=== PATIENT | male | born 1945 | race Caucasian/White ===

== ENCOUNTER → 2018-11-17 10:49 | Outpatient (CLI) | payer OTHER, MEDICARE ==
[~2018-11-17 10:49] MED LIST: ASCORBIC ACID500 MG PO; CENTRUM MEN'S1 EACH PO; SPIRIVA18 MCG INH; VITAMIN D31000 UNIT PO
[2018-12-01 10:35] VITALS: BMI 22.4
== END | disposition home or self-care (01) ==
LOC: D.RT 10:49
DX: C34.2 Malignant neoplasm of middle lobe, bronchus or lung (principal)

== ENCOUNTER 2018-11-28 05:00 | Inpatient (IN) | payer OTHER, MEDICARE ==
[2018-11-24 14:25] LABS: INR 1.1 (0.85-1.17); PROTIME 13.7 SECONDS (11.6-15.0)
[2018-11-24 14:26] LABS: APTT 32.8 SECONDS (22.8-39.4)
[2018-11-24 14:29] LABS: ALKALINE PHOSPHATASE 92 U/L (46-116); ALT (SGPT) 35 U/L (10-68); BILIRUBIN - TOTAL 0.64 mg/dL (0.2-1.3); CALC OSMOLALITY 267 mosm/kg (275-300); CALCIUM 8.6 mg/dL (8.5-10.1); CARBON DIOXIDE 27.8 mmol/L (21.0-32.0); CHLORIDE - SERUM 98 mmol/L (98-107); GLUCOSE 100 mg/dL (74-106); HEMATOCRIT 41.2 % (42.0-54.0); HEMOGLOBIN 14.2 g/dL (13.5-17.5); MCH 31.3 pg (26.0-34.0); MCHC 34.5 g/dL (31.0-37.0); MCV 90.9 fL (80.0-100.0); MEAN PLATELET VOLUME 8.9 fL (7.4-10.4); POTASSIUM - SERUM 4.1 mmol/L (3.5-5.1); PROTEIN - SERUM 7.4 g/dL (6.4-8.2); RBC 4.53 10x6/uL (4.20-6.10); RDW 11.4 % (11.5-14.5); SODIUM 133 mmol/L (136-145); UREA NITROGEN 18 mg/dL (7-18); eGFR NON AFRICAN AMERICAN 78 mL/min (90-120)
[2018-11-24 14:35] LABS: APPEARANCE HAZY (CLEAR); BILIRUBIN NEGATIVE (NEGATIVE); COLOR DK YELLOW (YELLOW); GLUCOSE NEGATIVE (NEGATIVE); KETONE NEGATIVE (NEGATIVE); NITRITE NEGATIVE (NEGATIVE); PROTEIN NEGATIVE (NEGATIVE); SPECIFIC GRAVITY 1.015 (1.005-1.020); UROBILINOGEN NORMAL (NORMAL)
[~2018-11-28] VITALS: Ht 177.8 cm; Wt 75.0 kg
[2018-11-28] VITALS (49 sets, daily range): BP systolic 96–135; BP diastolic 50–80; BMI 23.5; BMI 22.4
[~2018-11-28 05:00] MED LIST changes: -SPIRIVA18 MCG INH
[2018-11-28] MEDS ORDERED: SPIRIVA18 MCG INH (05:24)
--- NOTE | 2018-11-28 13:42 | NUR ---
1201-REC'D PT FROM OR. ALL CARDIO PULMONARY MONITORING EQUIPMENT ATTACHED AND ALARMS SET FOR ORDERED PARAMETERS. PT AWAKENS EASILY. FOLLOWS COMMAND. CXR DONE AT BS. ANN GTT AT 0.9MCG/KG/MIN. DR FLORES DCD SUCTION FROM CTUBES. EPIDURAL FOR PAIN MGNT. PT DENIES PAIN. ALLOWED TO ENTER FOR VISITING.
--- NOTE | 2018-11-28 19:30 | NUR ---
PT DISORIENTED TO TIME AND SITUATION. PERIODS OF CONFUSION PRESENT. WILL FOLLOW COMMANDS. SHALLOW RESPIRATIONS, LUNG SOUNDS CLEAR/DIMINISHED. SPO2 93 ON 4L O2 VIA NC. I/S COMPLETED REACHING 1000 X10. S1S2 HEARD, PERIPHERAL PULSES PRESENT. BOWEL SOUNDS ACTIVE IN ALL QUADRANTS. OCHOA CATH INTACT WITH DEEPTHI URINE TO BEDSIDE. CT X2 TO RIGHT SIDE, INTACT WITH BLOODY DRAINAGE. EPIDURAL INTACT, PT HAS NO C/O PAIN. PT REPOSITIONED COUGH/DB WITH GOOD EFFORT. VSS. ROOM VISIBLE FROM NURSES STAION, BED ALARM ON. CPOC.
--- NOTE | 2018-11-28 21:00 | NUR ---
PT AWAKE AND ALERT, REMAINS CONFUSED. FOLLOWS COMMANDS. FRESH WATER TO BEDSIDE, TOLERATING WELL WITH NO COMPLAINTS OF NAUSEA. COUGH/DB WITH GOOD EFFORT, I/S COMPLETED REACHING 1000 X10. PT REPOSITIONED WITH PROMINENCES BRIDGED. DENIES FURTHER NEEDS. ROOM VISIBLE FROM NURSES STATION. CPOC.
--- NOTE | 2018-11-28 22:00 | NUR ---
NO VISITORS DURING VISITATION. PT RESTING QUIETLY WITH NO COMPLAINTS AT THIS TIME. VSS, CPOC.
--- NOTE | 2018-11-28 23:30 | NUR ---
REASSESSMENT COMPLETE, NO NEW CHANGES AT THIS TIME. PT COUGH/DB WITH GOOD EFFORT. COMPLETED I/S REACHING 1000 X10. PT REPOSITIONED WITH PROMINENCES BRIDGED. VSS, NO C/O PAIN AT THIS TIME. DENIES NEEDS. CALL LIGHT WITHIN PT REACH, ROOM VISIBLE FROM NURSES STATION. CPOC.
[2018-11-29] VITALS (41 sets, daily range): BP systolic 90–129; BP diastolic 51–82; BMI 22.4
--- NOTE | 2018-11-29 02:00 | NUR ---
PT PULLING AT IV LINES AND TRYING TO GET UP SAYING, "I NEED TO GET TO [place]" PT REORIENTED, NEW CVL DRSG PLACED. REPOSITIONED IN BED, EPIDURAL INTACT. VSS. BED ALARM ON, ROOM VISIBLE FROM NURSES STATION. WILL CONTINUE TO MONITOR.
--- NOTE | 2018-11-29 03:30 | NUR ---
REASSESSMENT COMPLETE, NO NEW CHANGES AT THIS TIME. PT REPOSITIONED WITH PARTIAL LINEN CHANGE, PROMINENCES BRIDGED. COUGH/DB WITH GOOD EFFORT. I/S COMPLETED REACHING 1000 X10. VSS, WILL CONTIUE TO MONITOR.
--- NOTE | 2018-11-29 05:30 | NUR ---
PT REPOSITIONED WITH PROMINENCES BRIDGED. COUGH/DB, I/S COMPLETED REACHING 1000 X10. VSS, REMAINS CONFUSED. ROOM VISIBLE FROM NURSES STATION. CPOC.
[2018-11-29 06:19] LABS: HEMATOCRIT 31.8 % (42.0-54.0); HEMOGLOBIN 10.9 g/dL (13.5-17.5); MCH 31.1 pg (26.0-34.0); MCHC 34.3 g/dL (31.0-37.0); MCV 90.6 fL (80.0-100.0); MEAN PLATELET VOLUME 9.2 fL (7.4-10.4); RBC 3.51 10x6/uL (4.20-6.10); RDW 11.8 % (11.5-14.5); WBC 12.2 10x3/uL (4.8-10.8)
[2018-11-29 06:57] LABS: ALBUMIN 2.2 g/dL (3.4-5.0); ALKALINE PHOSPHATASE 65 U/L (46-116); ALT (SGPT) 32 U/L (10-68); BILIRUBIN - TOTAL 0.83 mg/dL (0.2-1.3); CALC OSMOLALITY 277 mosm/kg (275-300); CALCIUM 7.7 mg/dL (8.5-10.1); CARBON DIOXIDE 22.5 mmol/L (21.0-32.0); CHLORIDE - SERUM 103 mmol/L (98-107); CREATININE - SERUM 0.8 mg/dL (0.6-1.3); SODIUM 137 mmol/L (136-145); UREA NITROGEN 15 mg/dL (7-18); eGFR NON AFRICAN AMERICAN > 90 mL/min (90-120)
[2018-11-29 06:58] LABS: GLUCOSE 148 mg/dL (74-106)
[2018-11-29 06:59] LABS: POTASSIUM - SERUM 4.3 mmol/L (3.5-5.1)
--- NOTE | 2018-11-29 09:45 | NUR ---
PT DANGLING FROM BEDSIDE. VOICES NO CO AT TIME.
--- NOTE | 2018-11-29 10:15 | NUR ---
CONTINUE TO SIT ON SIDE OF BED WITH AT SIDE.
--- NOTE | 2018-11-29 12:00 | NUR ---
EATING LUNCH NO CO AT TIME.
--- NOTE | 2018-11-29 13:29 | MORECARE ---
CASE MANAGEMENT DISCHARGE SUMMARY PATIENT: EYAD THOMPSON UNIT: [id number] ADM DATE: 11/28/18 AGE: 73 : 45 SEX: M [facility] AUTHOR: FRANCIS VICKERS PHYSICIAN: REFERRING PHYSICIAN: PENNY FLORES MD DATE OF SERVICE: 11/29/18 Discharge Plan Patient Name: EYAD THOMPSON Facility: [facility]:[place] : 1945 Planned Disposition: Home Anticipated Discharge Date: Discharge Date: Expected LOS: Initial Reviewer: [email or web address] Initial Review Date: 11/29/2018 Generated: 11/29/18 2:28 pm Patient Name: EYAD THOMPSON Page 38573 at 1329 All edits/amendments must be made on the electronic document DICTATION DATE: 11/29/18 1328 PRECISION HONER: MONSTER 11/29/18 1328 RPT#: [id number] DC DATE: STATUS: ADM IN [facility] [address] [place] [address] END OF REPORT
--- NOTE | 2018-11-29 13:38 | MORECARE ---
CASE MANAGEMENT DISCHARGE SUMMARY PATIENT: EYAD WARD UNIT: [id number] ADM DATE: 11/28/18 AGE: 73 : 45 SEX: M ROOM/BED: D[facility] AUTHOR: FRANCIS VICKERS PHYSICIAN: REFERRING PHYSICIAN: PENNY FLORES MD DATE OF SERVICE: 11/29/18 Discharge Plan Patient Name: EYAD WARD Facility: [facility]:[place] : 1945 Planned Disposition: Home Anticipated Discharge Date: Discharge Date: Expected LOS: Initial Reviewer: [email or web address] Initial Review Date: 11/29/2018 Generated: 11/29/18 2:38 pm DCP- Discharge Planning Updated by [email or web address]: Georgiana Milner on 11/29/18 12:[address] Patient Name: EYAD WARD Admission Status: Urgent Accout number: [id number] Admission Date: 11-28-2018 : 1945 Admission Diagnosis: Attending: PENNY FLORES Current LOS: 1 Anticipated DC Date: Planned Disposition: Home Primary Insurance: [employer] Discharge Planning Comments: CM met with patient and spouse at bedside after obtaining verbal consent. Patient states he plans on returning home after discharge with his . Patient states he will have family transport him home via private vehicle. Patient denies any discharge needs at this time. CM will continue to follow and assist as needed for discharge planning / needs. [employer] Supervisor: Georgiana Milner DCPIA - Discharge Planning Initial Assessment Updated by [email or web address]: Georgiana Milner on 11/29/18 1:31 pm * Is the patient Alert and Oriented? Yes * How many steps to enter\exit or inside your home? * PCP Cong Barr * Pharmacy [facility] * Preadmission Environment Home with Family * ADLs Independent * Equipment None * List name and contact numbers for known caregivers / representatives who currently or will assist patient after discharge: Dominga Ward - spouse- [phone] * Verbal permission to speak to the caregivers and representatives has been obtained from the patient. Yes * Community resources currently utilized None * Additional services required to return to the preadmission environment? No * Can the patient safely return to the preadmission environment? Yes * Has this patient been hospitalized within the prior 30 days at any hospital? No Last DP export: 11/29/18 12:29 p Patient Name: EYAD WARD Page 22870 at 1338 All edits/amendments must be made on the electronic document DICTATION DATE: 11/29/181337 MATRIX DRIER TENDER: MONSTER 11/29/181337 RPT#: [id number] DC DATE: STATUS: ADM IN [facility] [address] [place] [address] END OF REPORT
--- NOTE | 2018-11-29 14:15 | NUR ---
DR FLORES HERE. NEW ORDER FOR REGULAR DIET. TRAY GIVEN TO PATIENT.
--- NOTE | 2018-11-29 16:00 | NUR ---
AT THE BEDSIDE. PT ALER AND ORIENT X4. VOICES NO CO AT TIME.
--- NOTE | 2018-11-29 16:30 | NUR ---
EATING SUPPER NO CO AT TIME.
--- NOTE | 2018-11-29 18:03 | OP ---
PATIENT NAME: EYAD THOMPSON MEDICAL RECORD: [id number] :[birth year] LOCATION:[facility] D[facility] ADMISSION DATE:11/28/18 SURGEON: PRABHAKAR FLORES MD DATE OF OPERATION: 11/28/2018 SURGEON: Prabhakar Flores MD ASSISTANTS: 1. Matty Herrera MD 2. JAZLYN Pascual PREOPERATIVE DIAGNOSIS: Right lung cancer. POSTOPERATIVE DIAGNOSIS: Right lung cancer. ANESTHESIA: General endotracheal anesthesia, double lumen. ESTIMATED BLOOD LOSS: 100 mL. COMPLICATIONS: Hypotension after induction, responded to pharmacologic intervention. CONDITION: Stable. SPECIMENS: 1. Right middle lobe and right lower lobe. 2. Multiple mediastinal lymph node stations. CONDITION: Stable. DISPOSITION: ICU. OPERATIVE FINDINGS: 1. 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 2. Tumor growing through the right middle lobe into the right lower lobe and mostly incomplete fissures. 3. Anthracotic lymph nodes. OPERATIVE INDICATION: Biopsy-proven lung cancer. PROCEDURE NOTE IN DETAIL: The patient was brought to the operating suite. Double lumen general endotracheal anesthesia was obtained. Bronchoscopy was performed, visualizing mass in the middle lobe that did not extend into the bronchus intermedius and no other endobronchial lesions. The patient was turned into the left lateral decubitus position with appropriate padding. Right chest was sterilely prepped and draped. Posterolateral thoracotomy incision was made. Subcutaneous tissue and latissimus were divided. Other muscles were spared. The section of the sixth rib posteriorly was removed to allow a trapdoor-type entrance. Upon entering the pleural cavity, the entire lung was fused. It was taken down sharply to free the entire lung and then the hilum. In the major fissure, branches to the upper lobe were visualized and one small group of branches to the lower lobe were divided between ligatures and suture ligatures. Pulmonary venous drainage was then identified. Upper lobe drainage spared. Middle lobe and lower lobe drainage OPERATIVE REPORT [id number] EYAD THOMPSON divided with a staple line. Several large subcarinal lymph nodes were dissected away. Inferior pulmonary ligament was freed. The large branch of the lower lobe was just in front of the bronchus. The bronchus was divided first. Then, the large lower lobe branch was divided. Upper lobe was reexpanded. Sutures along the edges, where the fissure was, completed with staple lines. Thorough irrigation was performed. Hemostasis was ensured. Other lymph nodes from paratracheal and inferior pulmonary ligament areas were removed in addition to the subcarinal and the lymph nodes that were sent with the specimen. Bronchus was airtight under water. Chest tubes were placed, directed to the apex and inferiorly. Wound was closed with pericostal sutures, 2 muscle layers, subcutaneous, and skin clips. Anesthesia was reversed and the patient was taken to the ICU in stable condition. The catalog library assistant for this case was Dr. Herrera. He was present for the entire intrathoracic portion of the case, where his assistance included dividing branches with ligatures and suture ligatures and stapling and sutures from the anterior side of the hilum. This extensive resection would not have been possible without an experienced catalog library assistant. TRANSINT:[id number] Voice Confirmation ID: [id number] DOCUMENT ID: [id number] PRABHAKAR FLORES MD at 1803 CC: [id number] DICTATION DATE: 11/28/18 1404 ICT SALES REPRESENTATIVE: 11/28/18 1600 ADM IN [facility] [address] [place] [id number]
--- NOTE | 2018-11-29 18:08 | NUR ---
PT BECOMING A LITTLE MORE CONFUSED. REORIENT EASILY.
--- NOTE | 2018-11-29 21:01 | NUR ---
1899 REPORT RECEIVED CARE ASSUMED. ASSESSMENT DONE SEE FLOW SHEET. VSS. RESERVOIR CHECKED. SEE FLOW SHEET. CTX2 TO WATER SEAL. NO SIGNS FOA CUTE DISTRESS NOTED. 1999 INCREASE IN HR NOTED. INCREASE IN AGITATION NOTED. DECREASE IN O2 SAT. COUGHING DEEP BREATHING WITH NO NOTABLE RESULTS. PT REQUESTIONG FAMILY. ATTEMPTING TO GET OUT OF BED. 2029 CALLED. SECURTY CODE VALIDATED. ON WAY TO HOSPITAL. PT IMMEDIATELY STABILIZED VS. NO SIGNS OF ACUTE DISTRESS. [facility]
--- NOTE | 2018-11-29 23:02 | NUR ---
FAMILY AT BEDSIDE. PT DECREASED IN AGGITATION. VSS. NO SIGNS OF ACUTE DISTRESS NOTED. REASSESSMENT DONE SEE FLOW SHEET.
[2018-11-30] VITALS (33 sets, daily range): BP systolic 99–154; BP diastolic 60–106
--- NOTE | 2018-11-30 04:08 | NUR ---
CVL DRESSING CHANGED. COMPLETE BED BATH LINEN CHANGE. PT DESAT WHILE TURNING. INCREASE IN HR NOTED. 130S. NRB APPLIED TO COMPENSATE. COUGHING AND DEEP BREATHING ENCOURAGED. WILL CONITNUE TO MONITOR.
--- NOTE | 2018-11-30 04:32 | NUR ---
HIGH FLOW NASAL CANNULA APPLIED. R LOBE GURGLING SOUND HEARD ON AUSCULTATION. WILL CONTINUE TO MONITOR.
[2018-11-30 04:46] LABS: HEMOGLOBIN 10.9 g/dL (13.5-17.5); MCH 31.1 pg (26.0-34.0); MCHC 34.1 g/dL (31.0-37.0); MCV 91.4 fL (80.0-100.0); MEAN PLATELET VOLUME 8.7 fL (7.4-10.4); RBC 3.5 10x6/uL (4.20-6.10); RDW 11.7 % (11.5-14.5); WBC 13.6 10x3/uL (4.8-10.8)
[2018-11-30 05:14] LABS: ALBUMIN 2.3 g/dL (3.4-5.0); ALKALINE PHOSPHATASE 68 U/L (46-116); ALT (SGPT) 31 U/L (10-68); BILIRUBIN - TOTAL 0.84 mg/dL (0.2-1.3); CALC OSMOLALITY 275 mosm/kg (275-300); CALCIUM 7.7 mg/dL (8.5-10.1); CARBON DIOXIDE 26.4 mmol/L (21.0-32.0); CHLORIDE - SERUM 101 mmol/L (98-107); CREATININE - SERUM 0.8 mg/dL (0.6-1.3); GLUCOSE 136 mg/dL (74-106); PROTEIN - SERUM 6.2 g/dL (6.4-8.2); SODIUM 137 mmol/L (136-145); UREA NITROGEN 12 mg/dL (7-18); eGFR NON AFRICAN AMERICAN > 90 mL/min (90-120)
[2018-11-30 05:31] LABS: POTASSIUM - SERUM 3.5 mmol/L (3.5-5.1)
--- NOTE | 2018-11-30 05:35 | NUR ---
DR FLORES INFORMED OF PT STATUS. NO NEW ORDERS RECEIVED WILL CONITNUE TO MONITOR.
--- NOTE | 2018-11-30 06:33 | NUR ---
PT MORE CONFUSED DISORIENTED TO TIME AND PLACE THIS AM. VSS. WILL CONTINUE TO MONITOR.
--- NOTE | 2018-11-30 07:00 | NUR ---
ASSESSMENT PER FLOWSHEET.
--- NOTE | 2018-11-30 15:43 | NUR ---
PT UP IN CHAIR AFIB RVR NOTED ON MONITOR HR 170. DR FLORES HERE ASSESSING PT AND TALKING TO NEW ORDERS OBTAINED.
--- NOTE | 2018-11-30 17:52 | NUR ---
DR FLORES CALLED TO CHECK ON PT 2.5 LOPRESSOR ORDER AND GIVEN IVP.
--- NOTE | 2018-11-30 19:00 | NUR ---
DR FLORES INFORMED OF PT STATUS BY AM RN ORDERS RECEIVED. ASSESSMENT DONE SEE FLOW SHEET. HR 130-150. WILL CONTINUE TO MONITOR.
--- NOTE | 2018-11-30 19:59 | NUR ---
DR FLORES INFORMED OF PT STATUS. NEW ORDERS RECEIVED SEE JAN. DR PINO INFORMED OF PT ON LOVENOX OK GIVEN FOR TREATMENT. WILL CONTINUE TO MONITOR.
--- NOTE | 2018-11-30 21:00 | NUR ---
MEDS GIVEN PER MAR. NO DIFFICULTY SWALLOWING NOTED.
--- NOTE | 2018-11-30 23:05 | NUR ---
REASSESSMENT COMPLETE. VSS. AFIB. HR LESS THAN 110. WILL CONTINUE TO MONITOR.
[2018-12-01] VITALS (23 sets, daily range): BP systolic 94–145; BP diastolic 64–91; Ht 177.8 cm; Wt 75.0 kg
--- NOTE | 2018-12-01 05:00 | NUR ---
0100 PT REQUIRES CONSTANT REORIENTATION. AFLUTTER NOTED. HEMODYNAMICALLY STABLE. WILL CONTINUE TO MONITOR. 0300 REASSESSMENT DONE SEE FLOW SHEET. VSS. AFLUTTER. 0400 DR FLORES INFORMED OF PT STATUS ORDER TO DECREASE CARDIZEM DRIP TO 10ML/HR GIVEN. WILL CONTINUE TO MONITOR.
[2018-12-01 07:51] LABS: ALBUMIN 2.2 g/dL (3.4-5.0); ALKALINE PHOSPHATASE 98 U/L (46-116); BILIRUBIN - TOTAL 1.03 mg/dL (0.2-1.3); CALC OSMOLALITY 269 mosm/kg (275-300); CALCIUM 7.9 mg/dL (8.5-10.1); CARBON DIOXIDE 25.3 mmol/L (21.0-32.0); CHLORIDE - SERUM 100 mmol/L (98-107); CREATININE - SERUM 0.8 mg/dL (0.6-1.3); GLUCOSE 125 mg/dL (74-106); POTASSIUM - SERUM 4.2 mmol/L (3.5-5.1); PROTEIN - SERUM 6.1 g/dL (6.4-8.2); SODIUM 134 mmol/L (136-145); UREA NITROGEN 15 mg/dL (7-18); eGFR NON AFRICAN AMERICAN > 90 mL/min (90-120)
[2018-12-01 07:52] LABS: HEMATOCRIT 32.4 % (42.0-54.0); HEMOGLOBIN 10.9 g/dL (13.5-17.5); MCH 30.9 pg (26.0-34.0); MCHC 33.6 g/dL (31.0-37.0); MCV 91.8 fL (80.0-100.0); MEAN PLATELET VOLUME 9.1 fL (7.4-10.4); RBC 3.53 10x6/uL (4.20-6.10); RDW 11.8 % (11.5-14.5)
[2018-12-01 07:54] LABS: ALT (SGPT) 53 U/L (10-68)
--- NOTE | 2018-12-01 09:44 | NUR ---
0730: DR. LAMAR CALLED AND SPOKE WITH SAULO DURING REPORT REGARDING REPORT OF MRI. DR. LAMAR WANTED TO PUT PATIENT ON DEC[facility]RON. SAULO STATED HE WOULD HAVE TO OKAY WITH DR. FLORES. 0815: UNA HERE. GIVEN UPDATE REGARDING MRI REPORT AND DR. LAMAR REQUEST TO PLACE ON DECADROM. 0830: UNA SPOKE WITH DR. FLORES AND HE OKAYED THE USE OF DECADROM. 0920: DR. LAMAR OFFICE CALLED TO VERIFY DECADRON. NEW ORDERS REC'D.
--- NOTE | 2018-12-01 10:58 | NUR ---
Uli BROWN APN HERE. NEW ORDERS REC'D. LANOXIN 0.5MG GIVEN IV.
--- NOTE | 2018-12-01 11:09 | NUR ---
Nutrition Follow Up: Pt stated that his appetite is great. Pt's said "He is eating everything on his tray!" RD encouraged pt to continue with good po intake and to make staff aware of any food preferences. Diet: Regular Wt gain noted No BM since admit I<O Meds and Labs reviewed Rec continue current diet. RD following.
--- NOTE | 2018-12-01 23:00 | NUR ---
190 REPORT RECEIVED CARE ASSU
--- NOTE | 2018-12-01 23:00 | NUR ---
1899 REPORT RECEIVED CARE ASSUMED. PT LAYING IN BED RESTING. VSS. PT INCREASINGLY AGGITATATED. FAMILY LEAVING BEDSIDE. ASSESSMENT DONE SEE FLOW SHEET. 1999 DR FLORES INFORMED OF PT STATUS. ORDERS RECEIVED. SEE MARE. 2099 MEDS GIVEN PER JAN. VSS. 2299 REASSESSMENT COMPLETE. NO SIGNS OF ACUTE DISTRESS NOTED. PT RESTING COMFORTABLEY. WILL CONTINUE TO MONITOR. VSS.
[2018-12-02] VITALS (24 sets, daily range): BP systolic 105–141; BP diastolic 53–86
--- NOTE | 2018-12-02 01:00 | NUR ---
PT RESTING IN BED COMFORTABLY. NO SIGNS OF ACUTE DISTRESS NOTED. WILL CONTINUE TO MONITOR.
[2018-12-02 05:56] LABS: HEMATOCRIT 32.2 % (42.0-54.0); HEMOGLOBIN 10.7 g/dL (13.5-17.5); MCH 30.7 pg (26.0-34.0); MCHC 33.2 g/dL (31.0-37.0); MCV 92.3 fL (80.0-100.0); RBC 3.49 10x6/uL (4.20-6.10); RDW 11.9 % (11.5-14.5)
[2018-12-02 06:00] LABS: WBC 8.3 10x3/uL (4.8-10.8)
[2018-12-02 06:33] LABS: ALBUMIN 2.1 g/dL (3.4-5.0); ALKALINE PHOSPHATASE 111 U/L (46-116); BILIRUBIN - TOTAL 0.68 mg/dL (0.2-1.3); CALCIUM 8.2 mg/dL (8.5-10.1); CARBON DIOXIDE 25.6 mmol/L (21.0-32.0); CHLORIDE - SERUM 102 mmol/L (98-107); CREATININE - SERUM 0.8 mg/dL (0.6-1.3); GLUCOSE 131 mg/dL (74-106); POTASSIUM - SERUM 4.3 mmol/L (3.5-5.1); PROTEIN - SERUM 6.1 g/dL (6.4-8.2); SODIUM 138 mmol/L (136-145); eGFR NON AFRICAN AMERICAN > 90 mL/min (90-120)
[2018-12-02 06:37] LABS: ALT (SGPT) 86 U/L (10-68); CALC OSMOLALITY 279 mosm/kg (275-300); UREA NITROGEN 19 mg/dL (7-18)
--- NOTE | 2018-12-02 11:15 | NUR ---
DR. VELASQUEZ HERE. R POSTERIOR CHEST TUBE DC'D.
--- NOTE | 2018-12-02 21:09 | NUR ---
1900 REPORT RECEIVED CARE ASSUMED. ASSESSMENT DONE SEE FLOW SHEET. VSS. NO SIGNS OF ACUTE DISTRESS NOTED. PT CONFUSED. R CT DRESSING REINFORCED WITH ABD PAD. PT VERBALIZES NO COMPLAINTS. WILL CONTINUE TO MONITOR. 2100 MEDS GIVEN PER JAN. VSS. NO DIFFICULTY SWALLOWING NOTED WILL CONTINUE TO MONITOR.
--- NOTE | 2018-12-02 23:00 | NUR ---
REASSESSMENT DONE SEE FLOW SHEET. VSS. NO SIGNS OF ACUTE DISTRESS NOTED.
[2018-12-03] VITALS (23 sets, daily range): BP systolic 114–159; BP diastolic 60–89
--- NOTE | 2018-12-03 03:00 | NUR ---
0100 PT RESTING IN BED COMFORTABLEY VSS. NO SIGNS OF ACUTE DISTRESS NOTED WILL CONTINUE TO MONITOR. 0300 REASSESSMENT DONE SEE FLOW SHEET VSS. NO SIGNS OF ACUTE DISTRESS NOTED WILL CONTINUE TO MONITOR.
--- NOTE | 2018-12-03 05:00 | NUR ---
WATER BROUGHT PER PT REQUEST. VSS. NO DIFFICULTY SWALLOWNING NOTED WILL CONTINUE TO MONITOR.
[2018-12-03 06:24] LABS: HEMATOCRIT 32.7 % (42.0-54.0); HEMOGLOBIN 10.9 g/dL (13.5-17.5); MCH 30.5 pg (26.0-34.0); MCHC 33.3 g/dL (31.0-37.0); MCV 91.6 fL (80.0-100.0); MEAN PLATELET VOLUME 9.2 fL (7.4-10.4); RBC 3.57 10x6/uL (4.20-6.10); RDW 11.7 % (11.5-14.5)
[2018-12-03 06:43] LABS: WBC 10.4 10x3/uL (4.8-10.8)
[2018-12-03 06:56] LABS: ALBUMIN 2.3 g/dL (3.4-5.0); ALKALINE PHOSPHATASE 106 U/L (46-116); BILIRUBIN - TOTAL 0.68 mg/dL (0.2-1.3); CALC OSMOLALITY 269 mosm/kg (275-300); CALCIUM 8.1 mg/dL (8.5-10.1); CARBON DIOXIDE 25.7 mmol/L (21.0-32.0); CHLORIDE - SERUM 99 mmol/L (98-107); CREATININE - SERUM 0.8 mg/dL (0.6-1.3); GLUCOSE 102 mg/dL (74-106); POTASSIUM - SERUM 4.1 mmol/L (3.5-5.1); PROTEIN - SERUM 6.2 g/dL (6.4-8.2); SODIUM 134 mmol/L (136-145); UREA NITROGEN 19 mg/dL (7-18); eGFR NON AFRICAN AMERICAN > 90 mL/min (90-120)
[2018-12-03 06:58] LABS: ALT (SGPT) 109 U/L (10-68)
--- NOTE | 2018-12-03 08:30 | NUR ---
WALKED WITH PT 250FT.
--- NOTE | 2018-12-03 19:24 | NUR ---
SHIFT ASSESSMENT COMPLETED PER FLOW SHEET. CONFUSED, REORIENTATION PROVIDED. RT CHEST TUBE PLACEMENT MARKED TO WATCH FOR MOVEMENT, DRESSING C/D/I, WATER SEAL, INTERMITTENT AIR LEAK NOTED. PPP. VSS. DENIES NEEDS. SEE FLOW SHEET FOR COMPLETE ASSESSMENT. WILL CONTINUE TO MONITOR.
--- NOTE | 2018-12-03 20:08 | NUR ---
PATIENT AWAKE, CONFUSED TO TIME, PLACE, AND SITUATION, REORIENTATION PROVIDED. CT SITE ASSESSED, REMAINS INTACT AT THE PLACE IT WAS MARKED AT BEGINNING OF SHIFT, NO DRAINAGE NOTED, DRESSING C/D/I. PATIENT IS CALM AND FOLLOWING COMMANDS. 400 MLS OF YELLOW URINE EMPTIED FROM URINAL. DENIES NEEDS. WILL CONTINUE WITH FALL INTERVENTIONS. CALL LIGHT WITHIN REACH.
--- NOTE | 2018-12-03 20:49 | NUR ---
SCHEDULED MEDS GIVEN, WATER WITH ICE PROVIDED, DENIES NEEDS. WILL CONTINUE TO MONITOR.
--- NOTE | 2018-12-03 21:08 | NUR ---
CT SITE ASSESSED AND REMAINS AT MARKED PLACE, DRESSING C/D/I. PATIENT REMAINS CONFUSED, STATING "ARE THERE THREE OF YOU LIVING HERE?" ASKED HIM IF HE COULD TELL ME WHERE HE WAS AND HE STATED "I AM IN [place]" REORIENTATION PROVIDED. CALM AND FOLLOWING COMMANDS. DENIES NEEDS. CALL LIGHT WITHIN REACH. WILL CONTINUE TO MONITOR.
--- NOTE | 2018-12-03 22:01 | NUR ---
PATIENT AWAKE, REQUESTING TO USE BEDPAN, BEDPAN PROVIDED. X1 SOFT BROWN BM NOTED. CLEANED AND REPOSITIONED IN BED. PATIENT CALM AND COOPERATIVE. REMAINS CONFUSED, REORIENTATION PROVIDED. CT SITE REMAINS AT MARKED SITE, DRESSING C/D/I. DENIES FURTHER NEEDS. WILL CONTINUE TO MONITOR.
--- NOTE | 2018-12-03 23:01 | NUR ---
REASSESSMENT COMPLETED PER FLOW SHEET, SEE FOR DETAILS. DENIES PAIN OR NEEDS. REMAINS CONFUSED TO TIME, REORIENTATION PROVIDED. HR 59, SINUS BRADYCARDIA. BP STABLE 130/83. WILL CONTINUE TO MONITOR. CALL LIGHT WITHIN REACH.
--- NOTE | 2018-12-03 23:30 | NUR ---
O2 SAT ALARM GOING OFF, UPON ENTERING ROOM PATIENT FOUND TO BE BREATHING RAPIDLY THROUGH HIS MOUTH. RR 30. O2 SAT 88% ON 3 L OXYMIZER. STATES "I FEEL NERVOUS" APPEARS ANXIOUS AND UNABLE TO KEEP CALM. ECOURAGED HIM TO SLOW DOWN HIS BREATHING AND BREATHE THROUGH HIS NOSE HE IS GETTING OXYGEN THROUGH HIS NOSE, HE STILL KEPT BREATHING THROUGH HIS MOUTH. BREATH SOUNDS REMAIN UNCHANGED. PRN ATIVAN GIVEN. WITHIN A FEW MINUTES PATIENT APPEARED CALM, AND WAS ABLE TO FOLLOW COMMANDS AND BREATHE THROUGH HIS NOSE, O2 SATURATION IMPROVED TO 94%. DENIES NEEDS. WILL CONTINUE TO MONITOR.
[2018-12-04] VITALS (24 sets, daily range): BP systolic 110–148; BP diastolic 61–90
--- NOTE | 2018-12-04 01:00 | NUR ---
RESTING, NO ACUTE DISTRESS NOTED. WAKES UP TO VERBAL STIMULI. CT SITE REMAINS AT MARKED SITE, DRESSING C/D/I. WILL CONTINUE TO MONITOR.
--- NOTE | 2018-12-04 01:51 | NUR ---
PATIENT AWAKE, REMAINS CONFUSED, STATES "I AM IN [place]" REORIENTATION PROVIDED. FOUND INCONTINENT OF URINE AND SMALL SOFT BM. PATIENT CLEANED AND REPOSITIONED IN BED. CT SITE ASSESSED, REMAINS AT MARKED SITE, DRESSING C/D/I. RT CHEST WALL TIGHTNESS AND SWELLING NOTED, SUBCUTANEOUS EMPHYSEMA NOTED TRAVELING UP TO MID LATERAL NECK, SITE MARKED. VITAL SIGNS STABLE. DENIES DIFFICULTY BREATHING. CALM AND COOPERATIVE. CRACKLES NOTED TO RIGHT LUNG. CT CONTINUES TO DRAIN, TOTAL OF [address] VELASQUEZ TO INFORM HIM OF FINDINGS.
--- NOTE | 2018-12-04 02:01 | NUR ---
CALLED AND SPOKE TO DR. VELASQUEZ, REPORTED CURRENT FINDINGS, VITAL SIGNS REVIEWED, CT OUTPUT REVIEWED. NO NEW ORDERS RECEIVED.
--- NOTE | 2018-12-04 03:01 | NUR ---
REASSESSMENT COMPLETED PER FLOW SHEET, SEE FOR DETAILS. CALM AND COOPERATIVE. NO DISTRESS NOTED. VSS. DENIES NEEDS. WILL CONTINUE TO MONITOR.
--- NOTE | 2018-12-04 04:25 | NUR ---
PATIENT OUT OF ROOM FOR AM CHEST XR. ACCOMPANIED BY THIS RN AND XR TECH.
--- NOTE | 2018-12-04 04:44 | NUR ---
PATIENT BACK IN ROOM FROM CHEST XR. ALL MONITORING RESUMED. NO ACUTE DISTRESS NOTED. SITTING IN CHAIR. ZHENG CHAIR ALARM ON AND FUNCTIONING PROPERLY. TEACHING PROVIDED ON FALL PRECAUTIONS TO PATIENT, HE VERBALIZED UNDERSTANDING. TV TURNED ON PER HIS REQUEST. DENIES FURTHER NEEDS. CALL LIGHT WITHIN REACH. WILL CONTINUE TO MONITOR.
--- NOTE | 2018-12-04 06:04 | NUR ---
CHAIR ALARM GOING OFF, PATIENT TRYING TO GET OUT OF CHAIR. INFORMED HIM THAT HE CAN NOT GET OUT OF BED WITHOUT ASSISSTANCE, HE SAT BACK DOWN IN CHAIR. STATES HE WOULD LIKE TO USE THE BATHROOM. ASSISSTED HIM TO BATHROOM. BM X1. ASSISSTED HIM BACK IN CHAIR. CHAIR ALARM ON. CALL LIGHT WITHIN REACH. WILL CONTINUE TO MONITOR.
[2018-12-04 06:35] LABS: HEMATOCRIT 36.8 % (42.0-54.0); HEMOGLOBIN 12.7 g/dL (13.5-17.5); MCH 31.6 pg (26.0-34.0); MCHC 34.5 g/dL (31.0-37.0); MCV 91.5 fL (80.0-100.0); MEAN PLATELET VOLUME 9.1 fL (7.4-10.4); RBC 4.02 10x6/uL (4.20-6.10); RDW 11.9 % (11.5-14.5); WBC 12.8 10x3/uL (4.8-10.8)
--- NOTE | 2018-12-04 07:00 | NUR ---
ASSESSMENT COMPLETE NO CO AT TIME. PT IS CONFUSED AT TIME.
[2018-12-04 07:20] LABS: ALBUMIN 2.6 g/dL (3.4-5.0); ALKALINE PHOSPHATASE 110 U/L (46-116); BILIRUBIN - TOTAL 0.61 mg/dL (0.2-1.3); CALC OSMOLALITY 273 mosm/kg (275-300); CALCIUM 8.4 mg/dL (8.5-10.1); CARBON DIOXIDE 26.7 mmol/L (21.0-32.0); CHLORIDE - SERUM 99 mmol/L (98-107); CREATININE - SERUM 0.8 mg/dL (0.6-1.3); GLUCOSE 103 mg/dL (74-106); POTASSIUM - SERUM 3.9 mmol/L (3.5-5.1); PROTEIN - SERUM 6.8 g/dL (6.4-8.2); SODIUM 136 mmol/L (136-145); UREA NITROGEN 19 mg/dL (7-18); eGFR NON AFRICAN AMERICAN > 90 mL/min (90-120)
[2018-12-04 07:22] LABS: ALT (SGPT) 158 U/L (10-68)
[2018-12-04 09:22] LABS: APTT 26.5 SECONDS (22.8-39.4); INR 0.96 (0.85-1.17); PROTIME 12.3 SECONDS (11.6-15.0)
--- NOTE | 2018-12-04 10:00 | NUR ---
CVL DCD. RIGHT LOWER ARM PIV 20G X 1 STICK.
--- NOTE | 2018-12-04 14:24 | NUR ---
Reviewed chart and spoke with nursing Pt eating 75-90% of meals past 3 days on regular diet [address] following
--- NOTE | 2018-12-04 18:00 | NUR ---
DR VELASQUEZ CALLED OK FOR THE RIGHT POSTERIOR CHEST TUBE TO BE ON SUCTION AND DECREASE TO 10 CM SUCTION AND TO LEAVE RIGHT CHEST TUBE 10CM OFF SUCTION.
--- NOTE | 2018-12-04 19:09 | NUR ---
REPORT RECEIVED, SHIFT ASSESSMENT COMPLETED PER FLOW SHEET. CONFUSED, REORIENTATION PROVIDED. VSS. PPP. LT FOREARM PIV PATENT, SALINE LOCKED. SEE FLOW SHEET FOR COMPLETE ASSESSMENT. DENIES NEEDS. CALL LIGHT WITHIN REACH. WILL CONTINUE TO MONITOR.
--- NOTE | 2018-12-04 20:56 | NUR ---
BED ALARM GOING OFF, UPON ENTERING ROOM FOUND PATIENT SITTING ON SIDE OF BED, STATES HE WANTS TO STAND UP TO USE URINAL, INFORMED HIM THAT FOR HIS SAFETY HE HAS TO HAVE ASSISSTANCE WHEN GETTING UP. PATIENT GOT AGITATED AND STARTED YELLING "I DO NOT NEED YOUR HELP, I AM 73 Y/O AND I AM ABLE TO DO THIS ON MY OWN." INFORMED HIM THAT HE HAS TWO CHEST TUBES AND HE IS AT RISK FOR FALLS AND THEREFORE NEEDS ASSISSTANCE. HE WAS UNABLE TO UNDERSTAND TEACHING BEING PROVIDED AND DENIED HELP AND REFUSED TO GET BACK IN BED ONCE HE HAD USED THE URINAL TO VOID, APPEARS ANGRY, 02 SAT DROPPED FROM 95% TO 88%. PRN ATIVAN GIVEN. WITHIN A FEW MINUTES HE ALLOWED X2 RN'S TO ASSISST HIM BACK IN BED. WILL CONTINUE TO MONITOR.
--- NOTE | 2018-12-04 22:00 | NUR ---
CALM WATCHING TV. REMOVED HIS O2 SENSOR AND PUT IT INSIDE HIS URINAL. TEACHING PROVIDED ON IMPORTANCE OF MAINTAINING O2 SENSOR ON, ASKED HIM IF HE COULD PLACE IT BACK ON HIS FINGER AND HE STATED "NO, YOU CAN PUT IT BACK ON." O2 SENSOR CLEANED AND PLACED BACK ON FINGER. DENIES NEEDS. CALL LIGHT WITHIN REACH. WILL CONTINUE TO MONITOR.
--- NOTE | 2018-12-04 23:11 | NUR ---
REASSESSMENT COMPLETED PER FLOW SHEET, SEE FOR DETAILS. REMAINS CONFUSED, REORIENTATION PROVIDED. VSS. WILL CONTINUE TO MONITOR.
[2018-12-05] VITALS (24 sets, daily range): BP systolic 104–156; BP diastolic 60–89
--- NOTE | 2018-12-05 00:19 | NUR ---
BED ALARM GOING OFF, UPON ENTERING ROOM, PATIENT FOUND TRYING TO GET OUT OF BED, INFORMED HIM THAT HE CAN NOT GET OUT OF BED WITHOUT ASSISSTANCE. STATES HE WANTS TO USE BATHROOM TO "PEE" URINAL PROVIDED. ASSISSTED HIM WITH REPOSITIONING IN BED. DENIES OTHER NEEDS. WILL CONTINUE TO MONITOR.
--- NOTE | 2018-12-05 02:14 | NUR ---
BED ALARM GOING OFF, PATIENT TRYING TO GET OUT OF BED, CONFUSED, REORIENTATION PROVIDED. ASSISSTED HIM BACK IN BED. DENIES NEEDS. WILL CONTINUE TO MONITOR.
--- NOTE | 2018-12-05 03:18 | NUR ---
REASSESSMENT COMPLETED PER FLOW SHEET, SEE FOR DETAILS. DENIES NEEDS. WILL CONTINUE TO MONITOR.
--- NOTE | 2018-12-05 05:00 | NUR ---
RESTING, NO ACUTE DISTRESS NOTED, WILL CONTINUE TO MONITOR.
[2018-12-05 05:50] LABS: HEMATOCRIT 34.7 % (42.0-54.0); HEMOGLOBIN 11.9 g/dL (13.5-17.5); MCH 31.2 pg (26.0-34.0); MCHC 34.3 g/dL (31.0-37.0); MCV 91.1 fL (80.0-100.0); MEAN PLATELET VOLUME 8.9 fL (7.4-10.4); RBC 3.81 10x6/uL (4.20-6.10); RDW 11.7 % (11.5-14.5); WBC 10.1 10x3/uL (4.8-10.8)
[2018-12-05 06:09] LABS: ALBUMIN 2.3 g/dL (3.4-5.0); ALKALINE PHOSPHATASE 94 U/L (46-116); ALT (SGPT) 161 U/L (10-68); BILIRUBIN - TOTAL 0.56 mg/dL (0.2-1.3); CALC OSMOLALITY 268 mosm/kg (275-300); CHLORIDE - SERUM 99 mmol/L (98-107); CREATININE - SERUM 0.7 mg/dL (0.6-1.3); GLUCOSE 105 mg/dL (74-106); POTASSIUM - SERUM 4.3 mmol/L (3.5-5.1); SODIUM 133 mmol/L (136-145); UREA NITROGEN 21 mg/dL (7-18); eGFR NON AFRICAN AMERICAN > 90 mL/min (90-120)
--- NOTE | 2018-12-05 06:35 | NUR ---
CALLED AND SPOKE TO DR. VELASQUEZ, HE STATED THAT HE IS OK WITH PATIENT CT TO BE TAKEN OFF OF SUCTION THIS MORNING FOR AM XR.
--- NOTE | 2018-12-05 06:47 | NUR ---
PATIENT TAKEN DOWN FOR AM XR, ACCOMPANIED BY THIS RN AND XR PERSONNEL.
--- NOTE | 2018-12-05 07:03 | NUR ---
PATIENT BACK IN ROOM FROM XR, ALL MONITORING RESUMED, ASSISSTED HIM TO CHAIR, APICAL CT CONNECTED BACK TO SUCTION. DENIES NEEDS. CALL LIGHT AND BELONGINGS WITHIN REACH.
--- NOTE | 2018-12-05 07:30 | NUR ---
PT RECIEVED UP IN CHAIR ALERT, ORIENTED TO PERSON BELIEVING IT IS 2003 AND UNABLE TO STATE WHERE HE IS OR WHY, REORIENTED EASILY, 3L O2, L FA PIV SALINE LOCKED, CONTINENT, TOLERATING BREAKFAST TRAY WELL, CHAIR ALARM IN PLACE AND FUNCTIONING, WILL CONTINUE TO MONITOR
--- NOTE | 2018-12-05 09:42 | NUR ---
SPOKE WITH KELLEY BROWN NURSE, PT IS NOT AMBULATING WITH PT TO REMAIN ON CT SUCTION
--- NOTE | 2018-12-05 12:30 | NUR ---
R LAT CT REMOVED BY KELLEY HENLEY, PER DR VELASQUEZ POSTERIOR CT TO WATER SEAL AND CXR 1600, IN ROOM AND UPDATED
--- NOTE | 2018-12-05 17:43 | NUR ---
1300 ATE 100% LUNCH 1500 REPOSITIONED IN CHAIR, MORE ORIENTED THAN THIS AM, ABLE TO STATE LOCATION 1600 CXR DONE 1700 ATE 75% DINNER AND ASSISTED BACK TO BED, DENIES PAIN AND ALL NEEDS
--- NOTE | 2018-12-05 19:00 | NUR ---
PT CONFUSED, DISORIENTED TO TIME AND SITUATION. FOLLOWS COMMANDS. PUPILS EQUAL AND REACTIVE, BOBBIN LOOSE END FINDER EQUAL, TONGUE MIDLINE. RESPIRATIONS SHALLOW, SPO2 94 WITH 2L O2 VIA NC. COUGH/DB ENCOURAGED, PT PASSIVE, GAVE WEAK EFFORT. RT POSTERIOR CT INTACT WITH DRSG CDI. S1S2 HEARD, PERIPHERAL PULSES PRESENT. BOWEL SOUNDS ACTIVE. URINAL AT BEDSIDE. PT REPOSITIONED FOR COMFORT. VSS, NO C/O PAIN AT THIS TIME. BED ALARM ON, ROOM VISIBLE FROM NURSES STATION. CPOC.
--- NOTE | 2018-12-05 21:16 | NUR ---
HS MEDS GIVEN WITH FRESH WATER. PT REPOSITIONED IN BED FOR COMFORT. REMAINS CONFUSED BT PLEASANT AND FOLLOWING COMMANDS. VSS, NO S/S PAIN AT THIS TIME. BED ALARM ON, ROOM VISIBLE FROM NURSES STATION. CPOC.
--- NOTE | 2018-12-05 23:00 | NUR ---
REASSESSMENT COMPLETE, PT REMAINS CONFUSED/DISORIENTED. PT STATES, "I HAVE TO GO BEFORE I MISS MY FLIGHT" ATTEMPTS TO REORIENT X3, PT BEGINS TO CALM DOWN WHEN TOLD HIS WILL BE BY TO VISIT IN THE MORNING. PT REPOSITIONED FOR COMFORT. VSS. BED ALARM ON, ROOM VISIBLE FROM NURSES STATION. CPOC.
[2018-12-06] VITALS (24 sets, daily range): BP systolic 93–130; BP diastolic 54–83
--- NOTE | 2018-12-06 00:40 | NUR ---
PT AGITATED, STATING, "YALL HAVE KIDNAPPED ME AND ARE GOING TO BE KILLED, LET ME GO." ATTEPMTS TO REORIENT UNSUCCESSFUL. DISORIENTED TO PLACE, TIME, AND SITUATION. PT REPOSITIONED FOR COMFORT, VSS, LIGHTS DIMMED. BED ALARM ON, ROOM VISIBLE FROM NURSES STATION. CPOC.
--- NOTE | 2018-12-06 01:00 | NUR ---
PT REMAINS CONFUSED AND AGITATED STATING, "I HAVE BEEN TAKEN AND I NEED TO GET BACK TO [place], YOU ARE ALL GOING TO BE KILLED, I FEEL SORRY FOR ALL OF YOU." ATTEMPTS TO REORIENT ARE UNSUCCESSFUL AT THIS TIME. PT REPOSITIONED IN BED, PARTIAL LINEN CHANGE PROVIDED. PT STARTS TO CALM DOWN, REASSURED THAT WILL BE BY THIS AM TO VISIT. BED ALARM ON, ROOM VISIBLE FROM NURSES STATION. CPOC.
--- NOTE | 2018-12-06 03:00 | NUR ---
REASSESSMENT COMPLETE, SEE FLOWSHEET FOR ALL FINDINGS. PT IS RESTING QUIETLY AT THIS TIME, VSS. PT REPOSITIONED SELF IN BED. BED ALARM ON, ROOM VISIBLE FROM NURSES STATION. CPOC.
--- NOTE | 2018-12-06 04:57 | NUR ---
BACK FROM RADIOLOGY WITH NURSE AND RAD STAFF X1. PT UP IN CHAIR, TOLERATES WELL, VSS, NO C/O PAIN. FRESH WATER TO BEDSIDE TABLE. DENIES NEEDS. ROOM VISIBLE FROM NURSES STATION. CPOC.
[2018-12-06 05:40] LABS: HEMOGLOBIN 12.2 g/dL (13.5-17.5); MCH 31.1 pg (26.0-34.0); MCHC 33.9 g/dL (31.0-37.0); MCV 91.8 fL (80.0-100.0); MEAN PLATELET VOLUME 8.9 fL (7.4-10.4); RBC 3.92 10x6/uL (4.20-6.10); RDW 11.8 % (11.5-14.5); WBC 12.1 10x3/uL (4.8-10.8)
[2018-12-06 06:17] LABS: ALBUMIN 2.5 g/dL (3.4-5.0); ALKALINE PHOSPHATASE 94 U/L (46-116); ALT (SGPT) 192 U/L (10-68); CALC OSMOLALITY 269 mosm/kg (275-300); CALCIUM 8.2 mg/dL (8.5-10.1); CARBON DIOXIDE 25.8 mmol/L (21.0-32.0); CHLORIDE - SERUM 99 mmol/L (98-107); CREATININE - SERUM 0.8 mg/dL (0.6-1.3); GLUCOSE 99 mg/dL (74-106); POTASSIUM - SERUM 4.4 mmol/L (3.5-5.1); PROTEIN - SERUM 6.1 g/dL (6.4-8.2); SODIUM 133 mmol/L (136-145); UREA NITROGEN 25 mg/dL (7-18); eGFR NON AFRICAN AMERICAN > 90 mL/min (90-120)
--- NOTE | 2018-12-06 07:15 | NUR ---
SHIFT REPORT RECIEVED. SITTING UP IN CHAIR. DENIES PAIN. HE SAYS HE JUST HAS SOME CRAMPING ALL OVER. ON 2L OF O2 VIA NC. HAS L-FOREARM PIV S.L. ORAL TEMP 98.0. HR 64, RR, 14, BP 128/68. CONFUSED TO PLACE, TIME AND SITUATION. HAS R-POSTERIOR CHEST TUBE IN PLACE TO WATER SEAL. SITE CDI. PREVIOUS CHEST TUBE SITE ON RIGHT SIDE DRESSING CDI. R POSTERIOR INCISION CANOE INSPECTOR. NO SIGNS OF INFECTION NOTED. SHIFT ASSESSMENT COMPLETED. ZHENG CHAIR ALARM ON. NO FURTHER NEEDS. WILL CONTINUE TO MONITOR.
--- NOTE | 2018-12-06 08:07 | NUR ---
IR IN ROOM AT THIS TIME. SHE STATED THAT SHE WAS PLACING R POSTERIOR CT BACK ON SUCTION.
--- NOTE | 2018-12-06 08:24 | NUR ---
IR NURSE TOOK R POSTERIOR CT OFF SUCTION.
--- NOTE | 2018-12-06 08:35 | NUR ---
EATING BREAKFAST. AM MEDS GIVEN. NO FURTHER NEEDS. WILL CONTINUE TO MONITOR.
--- NOTE | 2018-12-06 09:17 | NUR ---
AMBULATED 250FT WITH PHYSICAL THERAPY. ON 2L OF O2. O2 SAT AT END OF WALK WAS 88%. PT BACK IN CHAIR. WILL CONTINUE TO MONITOR.
--- NOTE | 2018-12-06 10:33 | NUR ---
R POSTERIOR CT PLACED ON 10 OF SUCTION AT THIS TIME. ASSISTED TO BEDSIDE COMMODE. VOIDED ABOUT 200ML OR YELLOW URINE. MODERATE AMOUNT BROWN, FORMED STOOL NOTED. ASSISTED BACK TO CHAIR. SPOUSE AT BEDSIDE. WILL CONTINUE TO MONITOR.
--- NOTE | 2018-12-06 11:00 | NUR ---
RE-ASSESSMENT COMPLETED. RESTING COMFORTABLY IN CHAIR. DENIES CHEST PAIN. NO ACUTE CHANGES FROM PREVIOUS ASSESSMENT. AX TEMP 97.9. ZHENG ALARM ON. WILL CONTINUE TO MONITOR.
--- NOTE | 2018-12-06 13:26 | NUR ---
Pt is on a regular diet with 75-90% intake of meals Pt reports a good appetite and that the food is wonderful Pt reports a stable weight and pt has no questions about nutrition at this time Reviewed chart RD following
--- NOTE | 2018-12-06 13:48 | NUR ---
RESTING COMFORTABLY IN CHAIR. VOIDED ABOUT 300ML OF URINE IN URINAL. SPOUSE AT BEDSIDE. HAS BEEN OFF O2 SINCE AROUND 1100. SATURATION ABOVE 90. WILL CONTINUE TO MONITOR.
--- NOTE | 2018-12-06 15:13 | NUR ---
ASSISTED UP TO BEDSIDE COMMODE. NO STOOL NOTED. VOIDED 200ML OF YELLOW URINE. RESTING COMFORTABLY BACK IN CHAIR. WILL CONTINUE TO MONITOR.
--- NOTE | 2018-12-06 17:07 | NUR ---
ASSISTED BACK TO BED. MEAL TRAY DELIVERED AND SET UP. ON 2L OF O2 VIA NC. VSS. WILL CONTINUE TO MONITOR.
--- NOTE | 2018-12-06 18:39 | NUR ---
ASSISTED TO BEDSIDE COMMODE. SMALL, FORMED, BROWN STOOL NOTED. VOIDED ABOUT 200ML OF YELLOW URINE.
--- NOTE | 2018-12-06 19:00 | NUR ---
REPORT RECEIVED CARE ASSUMED. PT LAYING IN BED RESTING VSS. ASSESSMENT DONE SEE FLOW SHEET. NO SIGNS OF ACUTE DISTRESS. SUBQ AIR NOTED R UPPER CHEST FROM R RIB CAGE POSTERIOR TO R LOWER NECK. PT REPORTS NO PAIN OR DIFFICULY BREATHIGN. BED ALARM ON PT REQUIRES CONSTANT REORIENTING. WILL CONTINUE TO MONTITOR.
--- NOTE | 2018-12-06 21:00 | NUR ---
MEDS GIVEN PER MAR. VSS. WILL CONTINUE TO MONITOR.
--- NOTE | 2018-12-06 22:56 | NUR ---
REASSESSMENT DONE SEE FLWO SHEET. VSS. WILL CONINUE TO MONITOR.
[2018-12-07] VITALS (23 sets, daily range): BP systolic 91–116; BP diastolic 4–76
--- NOTE | 2018-12-07 02:38 | NUR ---
0100 WATER PROVIDED PER PT REQUEST. 0300 REASSESSMENT DONE SEE FLOW SHEET. VSS. WILL CONTINUE TO MONITOR.
--- NOTE | 2018-12-07 07:00 | NUR ---
SHIFT REPORT RECEIVED. PT SITTING IN CHAIR. DENIES HAVING ANY PAIN. ON 2L OF O2 VIA NC. R POSTERIOR BACK CT TO 10CM SUCTION. DRESSING CDI. R POSTERIOR INCISION CARLINE WITH NO SIGNS OF INFECTION NOTED. R LATERAL CHEST DRESSING CHANGED. NO SIGNS OF INFECTIN NOTED. 4X4 AND TAGEDERM DRESSING APPLIED. RIGHT CHEST SUBQ CRACKLES NOTED ON PALPATION. HAS L-FOREARM PIV SALINE LOCK. 250ML OF CONCENTRATED YELLOW URINE NOTED IN URINAL. SHIFT ASSESSMENT COMPLETED. NO FURTHER NEEDS AT THIS TIME. WILL CONTINUE TO MONITOR.
[2018-12-07 07:09] LABS: ALBUMIN 2.7 g/dL (3.4-5.0); ALKALINE PHOSPHATASE 97 U/L (46-116); ALT (SGPT) 194 U/L (10-68); BILIRUBIN - TOTAL 0.62 mg/dL (0.2-1.3); CALC OSMOLALITY 270 mosm/kg (275-300); CALCIUM 8.7 mg/dL (8.5-10.1); CARBON DIOXIDE 27.9 mmol/L (21.0-32.0); CHLORIDE - SERUM 98 mmol/L (98-107); CREATININE - SERUM 0.9 mg/dL (0.6-1.3); GLUCOSE 97 mg/dL (74-106); POTASSIUM - SERUM 4.6 mmol/L (3.5-5.1); PROTEIN - SERUM 6.5 g/dL (6.4-8.2); SODIUM 133 mmol/L (136-145); UREA NITROGEN 27 mg/dL (7-18); eGFR NON AFRICAN AMERICAN 88 mL/min (90-120)
[2018-12-07 07:10] LABS: HEMATOCRIT 38.7 % (42.0-54.0); HEMOGLOBIN 13.1 g/dL (13.5-17.5); MCHC 33.9 g/dL (31.0-37.0); MCV 91.7 fL (80.0-100.0); MEAN PLATELET VOLUME 9.1 fL (7.4-10.4); RBC 4.22 10x6/uL (4.20-6.10); WBC 13.9 10x3/uL (4.8-10.8)
--- NOTE | 2018-12-07 08:38 | NUR ---
ATE ABOUT 90% OF BREAKFAST. I.S. BEST EFFORT BETWEEN 1500 AND 2000. AM MEDS GIVEN. ICE WATER PROVIDED. WILL CONTINUE TO MONITOR.
--- NOTE | 2018-12-07 09:48 | NUR ---
CARDIZEM SR 60MG CAPSULE CALLED IN TO [facility] ON [facility].
--- NOTE | 2018-12-07 11:00 | NUR ---
NO ACUTE CHANGES FROM PREVIOUS ASSESSMENT. CONTINUES SITTING UP IN CHAIR. USES URINAL. R POSTERIOR BACK CT REMAINS IN PLACE ON 10CM WALL SUCTION. VSS. WILL CONTINUE TO MONITOR.
--- NOTE | 2018-12-07 11:16 | NUR ---
PT DISCHARGED AT 1111. WHEELED OUT TO CAR VIA WHEELCHAIR. GOING HOME WITH HER AUNT. PERSONAL BELONGINGS SENT WITH PATIENT. COPY OF DISCHARGE PAPERS GIVEN TO PT.
--- NOTE | 2018-12-07 11:42 | NUR ---
REGULAR DIET LUNCH TRAY DELIVERED AND SET UP.
--- NOTE | 2018-12-07 14:40 | NUR ---
VSS. RESTING IN CHAIR WATCHING TV. URINAL AT BEDSIDE. NO FURTHER NEEDS AT THIS TIME. WILL CONTINUE TO MONITOR.
--- NOTE | 2018-12-07 17:45 | NUR ---
ASSISTED PT BACK TO BED. 200ML OF CONCENTRATED URINE NOTED IN URINAL. ATE MOST OF HIS DINNER. DRANK ALL OF HIS ENSURE. NO FURTHER NEEDS AT THIS TIME. WILL CONTINUE TO MONITOR.
--- NOTE | 2018-12-07 21:00 | NUR ---
1900 REPORT RECEIVED CARE ASSUMED. ASSESSMENT DONE SEE FLOW SHEET. VSS. ICU MONITORS IN PLACE ALARMS SET AND VERIFIED. NO SIGNS OF ACUTE DISTRESS NOTED WILL CONTINUE TO MONITOR. 2100 MEDS GIVEN PER JAN. NO DIFFICULTY SWALLOWING NOTED. WILL CONTINUE TO MONITOR.
--- NOTE | 2018-12-07 23:00 | NUR ---
REASSESSMENT DONE SEE FLOW SHEET. VSS. NO SIGNS OF ACUTE DISTRESS NOTED WILL CONTINUE TO MONITOR.
[2018-12-08] VITALS (22 sets, daily range): BP systolic 94–116; BP diastolic 59–73
--- NOTE | 2018-12-08 02:54 | NUR ---
0100 WATER PROVIDED AT PT REQUEST. VSS. NO SIGNS OF ACUTE DISTRESS NOTED. 0300 REASSESSMENT DONE SEE FLOW SHEET. VSS. WILL CONTINUE TO MONITOR.
--- NOTE | 2018-12-08 04:17 | NUR ---
PT TAKEN FOR PA AND LAT. RADIOLOGY AND RN AT SIDE PARTIAL BED BATH GIVEN. R LAT PREV CT SITE DRESSING CHANGED. VSS. NO SINGS OF ACUTE DISTRESS NOTED. PT ON ROOM AIR NO DESAT NOTED.
[2018-12-08 06:44] LABS: HEMATOCRIT 39.2 % (42.0-54.0); HEMOGLOBIN 13.3 g/dL (13.5-17.5); MCH 31.3 pg (26.0-34.0); MCHC 33.9 g/dL (31.0-37.0); MCV 92.2 fL (80.0-100.0); MEAN PLATELET VOLUME 9.3 fL (7.4-10.4); RBC 4.25 10x6/uL (4.20-6.10); RDW 12.2 % (11.5-14.5); WBC 17.1 10x3/uL (4.8-10.8)
[2018-12-08 06:48] LABS: ALBUMIN 2.7 g/dL (3.4-5.0); ALKALINE PHOSPHATASE 93 U/L (46-116); ALT (SGPT) 195 U/L (10-68); BILIRUBIN - TOTAL 0.48 mg/dL (0.2-1.3); CALC OSMOLALITY 274 mosm/kg (275-300); CALCIUM 8.3 mg/dL (8.5-10.1); CARBON DIOXIDE 27.2 mmol/L (21.0-32.0); CHLORIDE - SERUM 99 mmol/L (98-107); CREATININE - SERUM 0.8 mg/dL (0.6-1.3); GLUCOSE 99 mg/dL (74-106); POTASSIUM - SERUM 4.5 mmol/L (3.5-5.1); PROTEIN - SERUM 6.5 g/dL (6.4-8.2); SODIUM 135 mmol/L (136-145); UREA NITROGEN 27 mg/dL (7-18); eGFR NON AFRICAN AMERICAN > 90 mL/min (90-120)
--- NOTE | 2018-12-08 11:00 | NUR ---
Nutrition Follow Up: Chart reviewed Diet: Regular PO Intake: 89% meal avg Wt stable I<O Meds and Labs reviewed Rec continue current diet. RD following.
--- NOTE | 2018-12-08 12:11 | EC ---
PATIENT:EYAD THOMPSON DATE OF SERVICE: 11/28/18 SEX: M MEDICAL RECORD: [id number] DATE OF : 45 LOCATION:[place] [address] AGE OF PATIENT: 73 ADMISSION DATE: 11/28/18 REFERRING PHYSICIAN: INTERPRETING PHYSICIAN: MAGO SCHNEIDER MD ECHOCARDIOGRAM REPORT ECHO CHARGES 4 ECHO COMPLETE Date: 12/01/18 CLINICAL DIAGNOSIS: AFIB ECHOCARDIOGRAPHIC MEASUREMENTS (adult normal given) AC root (d.<3.7cm) 4.4 cm LV Septum d (<1.2 cm> 1.6 cm Valve Excursion 1.9 cm LV Septum (systole) 1.7 cm Left Atria (s.<4.0cm> 3.9 cm LVPW d(<1.2cm) 1.4 cm RV (d.<2.3cm) 3.5 cm LVPW (sytole) 1.7 cm LV diastole(<5.6CM) 5.2 cm MV E-F(>70mm/sec) cm LV systole 3.9 cm LVOT Diameter 2.2 cm MV exc.(>10mm) 1.9 cm Est.ejection fraction (50-75%) % DOPPLER: LVIT cm/sec A 66.0 cm/sec E 45.0 cm/sec LA cm/sec RVSP 47 mmHg LVOT 91 cm/sec AOP1/2T m/s Asc. Ao 113 cm/sec RVOT cm/sec RA cm/sec PA 103 cm/sec AV Gradient Peak 5.09 mmHg AV Mean 2.64 mmHg AV Area 2.9 cm MV Gradient Peak 2.16 mmHg MV Mean 0.56 mmHg MV Area cm COMMENTS: [employer] Torque Tester: Shahram CARUSO Veterinary Surgeon: 1 Dr. Schneider TAPE# PACS Pericardial Effusion N DATE OF SERVICE: 12/01/2018 Echocardiogram FINDINGS: 1. Left ventricular chamber size is within normal limits. Left ventricular systolic function is normal. Overall ejection fraction estimated at 55%. 2. Left atrium, right atrium, and right ventricle chamber sizes are within normal limits. 3. Valvular structures have normal structure and motion. ECHOCARDIOGRAM REPORT [id number] EYAD THOMPSON 4. Doppler interrogation reveals mild tricuspid regurgitation, no other valvular insufficiency or stenosis and pulmonary systolic pressure is estimated 47 mmHg. 5. No evidence of pericardial effusion or left ventricular thrombus. TRANSINT:[id number] Voice Confirmation ID: [id number] DOCUMENT ID: [id number] MAGO SCHNEIDER MD at 1211 CC: [id number] DICTATION DATE: 12/01/18 1509 CHIEF OF SURGERY: 12/01/181952 ADM IN [facility] [address] [place] [address]
--- NOTE | 2018-12-08 13:00 | NUR ---
NOTED AIRLEAK WITH PT SPEECH-NOT WITH DEEP BREATHS OR COUGHING
--- NOTE | 2018-12-08 17:56 | NUR ---
1600-K CLEEMNCIA AT BEDSIDE-EVERYOTHER CLIP IN SUTURE LINE REMOVED-INCISION INTACT AND WEL APPROXIMATED 1729-ASSISTED TO BED AIR MATTRESS INFLATED -SR ON MONITOR-CHEST TUBE TO STRAIGHT DRAINAGE
--- NOTE | 2018-12-08 19:30 | NUR ---
SHIFT ASSESSMENT COMPLETE, PER NURSING FLOWSHEET, NO OTHER NEEDS VOICED OR NOTED AT THIS TIME, C/L IN REACH
--- NOTE | 2018-12-08 21:00 | NUR ---
PATIENT INDEPENDENTLY REPOSITIONS SELF, PATIENT WATCHING T.V., IN NO APPARENT DISTRESS, C/L IN REACH
--- NOTE | 2018-12-08 23:00 | NUR ---
PATIENT REASSESSMENT COMPLETE, PER NURSING FLOWSHEET, PATIENT CONTINUES TO REPOSITION SELF AND AMBULATES TO BR WITH MINIMAL ASSIST, PRIMARILY MANAGING LINES/WIRES, CONTINUE POC
[2018-12-09] VITALS (22 sets, daily range): BP systolic 91–120; BP diastolic 48–73
--- NOTE | 2018-12-09 01:00 | NUR ---
PATIENT SLEEPING, REPOSITIONED SELF, VSS, WILL CONTINUE TO MONITOR
--- NOTE | 2018-12-09 03:00 | NUR ---
RE-ASSESSMENT COMPLETE, PER NURSING FLOWSHEET, VSS, C/L IN REACH
--- NOTE | 2018-12-09 05:00 | NUR ---
COMPLETE BATH, PATIENT TO PA & LAT, BACK FROM RADIOLOGY, UP TO CHAIR, PATIENT READING BOOK, NO NEED VOICED OR NOTED, CHAIR ALARM IS ACTIVE, C/L IN REACH
[2018-12-09 06:15] LABS: HEMOGLOBIN 12.9 g/dL (13.5-17.5); MCH 31.1 pg (26.0-34.0); MCHC 33.9 g/dL (31.0-37.0); MCV 91.6 fL (80.0-100.0); MEAN PLATELET VOLUME 9.1 fL (7.4-10.4); RBC 4.15 10x6/uL (4.20-6.10); RDW 12.1 % (11.5-14.5); WBC 16.1 10x3/uL (4.8-10.8)
[2018-12-09 06:27] LABS: ALBUMIN 2.7 g/dL (3.4-5.0); ALKALINE PHOSPHATASE 90 U/L (46-116); ALT (SGPT) 184 U/L (10-68); BILIRUBIN - TOTAL 0.59 mg/dL (0.2-1.3); CALC OSMOLALITY 273 mosm/kg (275-300); CALCIUM 8.2 mg/dL (8.5-10.1); CARBON DIOXIDE 24.7 mmol/L (21.0-32.0); CHLORIDE - SERUM 100 mmol/L (98-107); CREATININE - SERUM 0.9 mg/dL (0.6-1.3); GLUCOSE 99 mg/dL (74-106); POTASSIUM - SERUM 4.7 mmol/L (3.5-5.1); PROTEIN - SERUM 6.2 g/dL (6.4-8.2); SODIUM 134 mmol/L (136-145); UREA NITROGEN 29 mg/dL (7-18); eGFR NON AFRICAN AMERICAN 88 mL/min (90-120)
[2018-12-09 08:16] LABS: HEPATITIS C ANTIBODY <0.1 (0.0-0.9)
--- NOTE | 2018-12-09 09:54 | NUR ---
0715-UP IN CHAIR-VERBALLY APPROPRIATE-ABLE TO STATE LOCATION AND HISTORY OF SITUATION-BARRETO = STRONG-R CHEST TUBE-TO STRAIGHT DRAINAGE-VERY MINIMAL AIRLEAK WITH SPEECH- 0915-AMBULATED WITH PHYSICAL THERAPY ON ROOM AIR-O2 SAT 88%-NOTED SOB AND PT STATED TIRED-PLAACED ON O2 2L -INCREASED TO 96-NOTED SUB QUE EMPHYSEMAR UPPER CHEST WALL-SMALL AMOUNT-TOWARDS MIDSTERNUM-DR FLORES NOTIFIED OF SAME
--- NOTE | 2018-12-09 13:31 | NUR ---
1045-ASSISTED PT TO BED--STATED CHAIR BECOMING UNCOMFORTABLE 1130-DR FLORES PRESENT-STAT PORT CXR ORDERED 1200-PT REMAINS IN BED-NOTED CONTINUED SUBQUE EMPHYSEMA-INFORMED OF SMALL CHANGES AND WAITING FOR REPEAT CXR TO BE DONE-DR FLORES IN UNIT AND AWARE 1230-XRAY REPEATED - 1245-DR FLORES AT [facility] AND REVIEWED WITH AND PT -CURRENT FINDINGS-AND POSSIBLE COURSE OF TREATMENT- 1300-ASSISTED PT BACK TO CHAIR-CHEST TUBE REMAINS IN PLACE AND TO WATER SEAL-MOVEMENT OF FLUID IN TUBING WITH RESPIRATIONS
--- NOTE | 2018-12-09 18:44 | NUR ---
AMBULATED TO REST ROOM EASILY ROOM AIR O2 85%-PLACED BACK ON 2LNP
--- NOTE | 2018-12-09 21:00 | NUR ---
190 REPORT RECEIVED CARE ASSUMED. PT LAYING IN BED RESTING. VSS. ASSESSMENT DONE SEE FLOW SHEET. ICU MONITORS IN PLACE ALARMS SET AND VERIFED. 1999 PT UNASSISTED TO BATHROOM. NO DIFFICULTY NOTED. UNPLANNED OR ASSISTED. ICU MONITORS IN PLACE ALARMS SET AND VERIFIED. 2100 MEDS GIVEN PER JAN. NO DIFFICULTY NOTED WILL CONITNUE TO MONITOR.
--- NOTE | 2018-12-09 23:00 | NUR ---
REASSESSMENT DONE SEE FLOW SHEET. PT RESTING IN BED COMFORTABELY VSS. NO SIGNS OF ACUTE DISTRESS NOTED. WILL CONTINUE TO MONITOR.
[2018-12-10] VITALS (24 sets, daily range): BP systolic 95–156; BP diastolic 45–82
--- NOTE | 2018-12-10 01:00 | NUR ---
PT LAYING IN BED RESTING VSS NO SIGNS OF ACUTE DISTRESS NTOED WILL CONTINUE TO MONITOR.
--- NOTE | 2018-12-10 02:21 | NUR ---
PT HAS INCREASED SUBQ AIR NOTED. CRACKLING UP IN FACE NOTED UPON PRESSING ON BULGE. VSS. DR FLORES INFORMED OF PT STATUS. WILL CONTINUE TO MONITOR.
--- NOTE | 2018-12-10 03:00 | NUR ---
REASSESSMENT DONE SEE FLOW SHEET. R SIDED FACIAL SUBQ AIR NOTED. WILL CONTINUE TO MONITOR. VSS.
[2018-12-10 04:58] LABS: HEMATOCRIT 38.5 % (42.0-54.0); HEMOGLOBIN 13.1 g/dL (13.5-17.5); MCH 31.1 pg (26.0-34.0); MCV 91.4 fL (80.0-100.0); MEAN PLATELET VOLUME 9.2 fL (7.4-10.4); RBC 4.21 10x6/uL (4.20-6.10); RDW 12.2 % (11.5-14.5); WBC 14.8 10x3/uL (4.8-10.8)
--- NOTE | 2018-12-10 05:00 | NUR ---
PT TAKEN FOR PA AND LATERAL. DECREASED O2 SAT NOTED. NC 2LPM APPLIED ON EXERTION. O2 SAT 100%. NC REMOVED AFTER EXERTION.
[2018-12-10 05:26] LABS: ALBUMIN 2.8 g/dL (3.4-5.0); ALKALINE PHOSPHATASE 90 U/L (46-116); ALT (SGPT) 173 U/L (10-68); BILIRUBIN - TOTAL 0.56 mg/dL (0.2-1.3); CALC OSMOLALITY 268 mosm/kg (275-300); CALCIUM 8.1 mg/dL (8.5-10.1); CARBON DIOXIDE 26.2 mmol/L (21.0-32.0); CHLORIDE - SERUM 99 mmol/L (98-107); CREATININE - SERUM 0.9 mg/dL (0.6-1.3); GLUCOSE 109 mg/dL (74-106); POTASSIUM - SERUM 4.4 mmol/L (3.5-5.1); PROTEIN - SERUM 6.3 g/dL (6.4-8.2); SODIUM 131 mmol/L (136-145); UREA NITROGEN 27 mg/dL (7-18); eGFR NON AFRICAN AMERICAN 88 mL/min (90-120)
--- NOTE | 2018-12-10 14:02 | NUR ---
5730- AT BEDSIDE AND REVIEWED WITH SAME WHAT WAS TOLD TO PT BY DR FLORES-IMPROVEMENT SEEN ON 12/10/18 XRAY-EXPECT SWELLING AROUND R EYE-SUB QUE EMPHYSEMA-AND EXPECTED TO OCCUR TO L EYE SKIN-RESOLVES WITHOUT INTERVENTION
--- NOTE | 2018-12-10 19:30 | NUR ---
PATIENT SHIFT ASSESSMENT COMPLETE, PATIENT REPOSITIONED, NO OTHER NEEDS VOICED OR NOTED AT THIS TIME, C/L IN REACH
--- NOTE | 2018-12-10 21:00 | NUR ---
PATIENT WATCHING T.V., CONTINUES TO VOICE NO NEEDS, CONTINUE POC
--- NOTE | 2018-12-10 23:00 | NUR ---
RE-ASSESSMENT COMPLETE PER NURSING FLOWSHEET, PATIENT REPOSITIONED, EMPTIED FROM URINAL. C/L IN REACH
[2018-12-11] VITALS (22 sets, daily range): BP systolic 100–125; BP diastolic 57–77
--- NOTE | 2018-12-11 01:00 | NUR ---
PATIENT SLEEPING, IN NO APPARENT DISTRESS, VSS, WILL CONTINUE TO MONITOR
--- NOTE | 2018-12-11 03:00 | NUR ---
RE-ASSESSMENT COMPLETE, PER NURSING FLOWSHEET, PATIENT REPOSITIONED, CONTINUE POC
--- NOTE | 2018-12-11 05:00 | NUR ---
PATIENT SLEEPING, NO DISTRESS NOTED, SLIGHTLY BRADYCARDIC, VS OTHERWISE STABLE, CONTINUE POC
--- NOTE | 2018-12-11 10:20 | NUR ---
PT ASSISTED UP TO TOILET. HAD BOWEL MOVEMENT. NOW BACK IN CHAIR. CHECKED CHEST TUBE TO MAKE SURE NOT TWISTED OR KINKED. PT ENCOURAGED TO COUGH AND USE I.S. SMALL AIRLEAK NOTED.
--- NOTE | 2018-12-11 11:53 | NUR ---
LUNCH TRAY PROVIDED. PT UP IN CHAIR. DENIES ANY ADDITIONAL NEEDS. CALL LIGHT IN REACH.
--- NOTE | 2018-12-11 14:26 | NUR ---
DR FLORES IN ROOM SPEAKING WITH PT AND
--- NOTE | 2018-12-11 15:22 | NUR ---
Regular diet with good po intake ~60-100% of meals Reviewed chart Weight 170lb today-discussed weight discrepancy with nursing RD following
--- NOTE | 2018-12-11 18:00 | NUR ---
PT ASSISTED UP TO TOILET AND THEN TO BED.
--- NOTE | 2018-12-11 19:30 | NUR ---
SHIFT ASSESSMENT COMPLETE, PER NURSING FLOWSHEET, PATIENT REPOSITIONED, INDEPENDENTLY PROVIDES ORAL CARE, NO OTHER NEEDS VOICED OR NOTED AT THIS TIME
--- NOTE | 2018-12-11 21:00 | NUR ---
PATIENT WATCHING TV, VSS, NO NEEDS VOICED OR NOTED AT THIS TIME
--- NOTE | 2018-12-11 23:00 | NUR ---
RE-ASSESSMENT COMPLETE, PER NURSING FLOWSHEET, PATIENT INDEPENDENTLY REPOSITIONS SELF, C/L IN REACH
[2018-12-12] VITALS (23 sets, daily range): BP systolic 91–112; BP diastolic 48–70
--- NOTE | 2018-12-12 01:00 | NUR ---
PATIENT SLEEPING, IN NO APPARENT DISTRESS, VSS, WILL CONTINUE TO MONITOR, CONTINUE POC
--- NOTE | 2018-12-12 03:00 | NUR ---
RE-ASSESSMENT COMPLETE, PER NURSING FLOWSHEET, PATIENT WAKES EASILY, FOLLOWS COMMANDS, RESPONDS APPROPRIATELY AND IMMEDIATELY FALLS BACK TO SLEEP, CONTINE POC
--- NOTE | 2018-12-12 05:00 | NUR ---
PATIENT SLEEPING, IN NO APPARENT DISTRESS, VSS, C/L IN REACH
[2018-12-12 09:30] LABS: HEMATOCRIT 39.7 % (42.0-54.0); WBC 24.2 10x3/uL (4.8-10.8)
[2018-12-12 09:35] LABS: CALC OSMOLALITY 272 mosm/kg (275-300); CALCIUM 8.2 mg/dL (8.5-10.1); CARBON DIOXIDE 28.6 mmol/L (21.0-32.0); CHLORIDE - SERUM 99 mmol/L (98-107); CREATININE - SERUM 0.9 mg/dL (0.6-1.3); GLUCOSE 120 mg/dL (74-106); POTASSIUM - SERUM 4.4 mmol/L (3.5-5.1); SODIUM 134 mmol/L (136-145); UREA NITROGEN 25 mg/dL (7-18); eGFR NON AFRICAN AMERICAN 88 mL/min (90-120)
[2018-12-12 09:53] LABS: HEMOGLOBIN 13.4 g/dL (13.5-17.5); MCHC 33.8 g/dL (31.0-37.0); MCV 91.9 fL (80.0-100.0); MEAN PLATELET VOLUME 9.4 fL (7.4-10.4); PLATELET COUNT 490 10x3/uL (130-400); RBC 4.32 10x6/uL (4.20-6.10); RDW 12.1 % (11.5-14.5)
[2018-12-12 10:17] LABS: LYMPHOCYTES 3 % (15-50); MONOCYTES 4 % (2-11); NEUTROPHILS 88 % (40-80); PLATELET ESTIMATE INCREASED
[2018-12-12 10:18] LABS: ROULEAUX OCC
[2018-12-12 12:40] LABS: HEMOGLOBIN 13.1 g/dL (13.5-17.5); MCH 31.2 pg (26.0-34.0); MCHC 33.6 g/dL (31.0-37.0); MCV 92.9 fL (80.0-100.0); MEAN PLATELET VOLUME 9.1 fL (7.4-10.4); PLATELET COUNT 448 10x3/uL (130-400); RDW 12.2 % (11.5-14.5); WBC 29.2 10x3/uL (4.8-10.8)
[2018-12-12 14:30] LABS: LYMPHOCYTES 13 % (15-50); MONOCYTES 5 % (2-11); NEUTROPHILS 80 % (40-80); PLATELET ESTIMATE INCREASED
[2018-12-12 19:07] LABS: APPEARANCE CLEAR (CLEAR); BILIRUBIN NEGATIVE (NEGATIVE); COLOR YELLOW (YELLOW); GLUCOSE NEGATIVE (NEGATIVE); KETONE NEGATIVE (NEGATIVE); NITRITE NEGATIVE (NEGATIVE); PROTEIN NEGATIVE (NEGATIVE); UROBILINOGEN NORMAL (NORMAL)
--- NOTE | 2018-12-12 19:30 | NUR ---
REC'D TO CARE, PT AWAKE AND WATCHING TV. VSS. SKIN/INCIONS ASSESSMENT PER FLOWSHEET. CT TO WATER SEAL, SCANT DRAINAGE NOTED. AIR OVERLAY IN USE, PT VERBALIZES UNDERSTANDING OF FALL PRECAUTIONS. DENIES PAIN OR NEEDS. ALARMS ON AND C/L IN REACH.. URINAL AT BS.
--- NOTE | 2018-12-12 21:58 | NUR ---
NO VISITORS, PT RESTING QUIETLY, NO SIGN OF DISTRESS.
--- NOTE | 2018-12-12 23:15 | NUR ---
REASSESSMENT PER FLOWSHEET, NO ACUTE CHANGES. PT AWAKENS EASILY, VSS. URINAL EMPTIED OF 250ML CLEAR, YELLOW URINE. R CT SITE C/D/I. PT DENIES NEEDS. C/L IN REACH.
[2018-12-13] VITALS (20 sets, daily range): BP systolic 92–124; BP diastolic 48–86
--- NOTE | 2018-12-13 01:00 | NUR ---
PT RESTING QUIETLY, VSS. NO SIGN OF DISTRESS.
--- NOTE | 2018-12-13 03:00 | NUR ---
REASSESSMENT PER FLOWSHEET, NO ACUTE CHANGES. PT REPOSITIONED SELF TO L SIDE. DENIES NEEDS. ALARMS ON AND C/L IN REACH.
--- NOTE | 2018-12-13 05:56 | NUR ---
DSG CHANGE TO R POST CT/INCISION, NO REDNESS OR SWELLING AT SITE. DSG CHANGE TO PREV R LAT CT SITE, MINIMAL DRAINAGE NOTED. PT REFUSES BATH AT THIS TIME. C/L IN REACH.
[2018-12-13 06:31] LABS: CALC OSMOLALITY 269 mosm/kg (275-300); CALCIUM 8.2 mg/dL (8.5-10.1); CARBON DIOXIDE 28.1 mmol/L (21.0-32.0); CHLORIDE - SERUM 98 mmol/L (98-107); CREATININE - SERUM 0.9 mg/dL (0.6-1.3); GLUCOSE 104 mg/dL (74-106); POTASSIUM - SERUM 4.6 mmol/L (3.5-5.1); SODIUM 133 mmol/L (136-145); UREA NITROGEN 25 mg/dL (7-18); eGFR NON AFRICAN AMERICAN 88 mL/min (90-120)
[2018-12-13 06:38] LABS: WBC 20.4 10x3/uL (4.8-10.8)
[2018-12-13 06:40] LABS: BASOPHILS 0 % (0-2); EOSINOPHILS 0.1 % (0-7); HEMATOCRIT 36.9 % (42.0-54.0); HEMOGLOBIN 12.4 g/dL (13.5-17.5); IMMATURE GRANULOCYTES 1.3 % (0-5); LYMPHOCYTES 4.9 % (15-50); MCH 30.8 pg (26.0-34.0); MCHC 33.6 g/dL (31.0-37.0); MCV 91.8 fL (80.0-100.0); MEAN PLATELET VOLUME 9.1 fL (7.4-10.4); MONOCYTES 9.9 % (2-11); NEUTROPHILS 83.8 % (40-80); PLATELET COUNT 406 10x3/uL (130-400); RBC 4.02 10x6/uL (4.20-6.10); RDW 12.1 % (11.5-14.5)
--- NOTE | 2018-12-13 09:00 | NUR ---
DR FLORES HERE INSTRUCT TO CLAMP CHEST TUBE AND DONE. NO OTHER ORDERS NOTED.
--- NOTE | 2018-12-13 13:43 | NUR ---
Pt is on a regular diet with 75-100% intake of meals on 2/ Pt reports good appetite, tolerating meals well Pt has no nutrition related questions at this time RD following
--- NOTE | 2018-12-13 15:00 | NUR ---
PA AND LAT CXR DONE.
--- NOTE | 2018-12-13 22:58 | NUR ---
1900 REPORT RECEIVED CARE ASSUMED. PT LAYING IN BED RESTING VSS. NO SIGNS OF ACUTE DISTRESS NOTED. ASSESSMENT DONE SEE FLOW SHEET. VSS. IS 1500. PT VERBALIZES NO COMPLAINTS. 2100 MEDS GIVEN PER MAR. VSS. WILL CONTINUE TO MONITOR. 2300 REASSESSMENT DONE SEE FLOW SHEET. VSS. WILL CONTINUE TO MONITOR.
[2018-12-14] VITALS (16 sets, daily range): BP systolic 93–111; BP diastolic 52–72
--- NOTE | 2018-12-14 05:48 | NUR ---
0100 WATER PROVIDED PER PT REQUEST. VSS. 0300 REASSESSMENT DONE SEE FLOW SHEET. VSS. NO SIGNS OF ACUTE DISTRESS NOTED. 0430 PT TAKEN FOR PA AND LAT NO DIFFICULTY AMBULATING NOTED. PT VERBALIZES NO COMPLAINTS WHILE AMBULATING LARGE AMOUNT OF DRAINAGE NOTED FROM L LAT PREV CT SITE. DRESSING CHANGED WILL CONTINUE TO MONITOR.
--- NOTE | 2018-12-14 07:30 | NUR ---
DR FLORES HERE SEEING PATIENT. ORDER RECIEVED TO DC MAYANK AND DONE. INCISION CDI.
--- NOTE | 2018-12-14 08:35 | NUR ---
WILLIAM HENLEY HERE DC CT.
[2018-12-14] MEDS ORDERED: AMIODARONE HCL200 MG PO (09:25)
[2018-12-14] MEDS ORDERED: LOPRESSOR25 MG PO (09:25)
[2018-12-14] MEDS ORDERED: CARDIZEM30 MG PO (09:26)
[2018-12-14] MEDS ORDERED: ASPIRIN EC81 M1 PO (09:26)
[2018-12-14] MEDS ORDERED: K-DUR20 MEQ PO (09:26)
[2018-12-14 15:45] LABS: HEMATOCRIT 36.9 % (42.0-54.0); HEMOGLOBIN 12.5 g/dL (13.5-17.5); MCH 31.5 pg (26.0-34.0); MCHC 33.9 g/dL (31.0-37.0); MCV 92.9 fL (80.0-100.0); PLATELET COUNT 421 10x3/uL (130-400); RBC 3.97 10x6/uL (4.20-6.10); RDW 12.3 % (11.5-14.5); WBC 17.9 10x3/uL (4.8-10.8)
[2018-12-14 16:04] LABS: LYMPHOCYTES 3 % (15-50); MONOCYTES 1 % (2-11); NEUTROPHILS 96 % (40-80)
[2018-12-14 16:05] LABS: PLATELET ESTIMATE INCREASED; PLATELET MORPHOLOGY NORMAL PLT MORPH
--- NOTE | 2018-12-14 17:00 | NUR ---
NO DRAINAGE NOTED OUT OF CHEST TUBE SITES.
--- NOTE | 2018-12-14 17:10 | MORECARE ---
CASE MANAGEMENT DISCHARGE SUMMARY PATIENT: EYAD WARD UNIT: [id number] ADM DATE: 11/28/18 AGE: 73 : 45 SEX: M ROOM/BED: [facility] AUTHOR: FRANCIS VICKERS PHYSICIAN: REFERRING PHYSICIAN: PENNY FLORES MD DATE OF SERVICE: 12/14/18 Discharge Plan Patient Name: EYAD WARD Facility: [facility]:[place] : 1945 Planned Disposition: Home Anticipated Discharge Date: Discharge Date: Expected LOS: Initial Reviewer: [email or web address] Initial Review Date: 11/29/2018 Generated: 12/14/18 6:10 pm DCP- Discharge Planning Updated by [email or web address]: Georgiana Milner on 11/29/18 12:[address] Patient Name: EYAD WARD Admission Status: Urgent Accout number: [id number] Admission Date: 11-28-2018 : 1945 Admission Diagnosis: Attending: PENNY FLORES Current LOS: 1 Anticipated DC Date: Planned Disposition: Home Primary Insurance: [employer] Discharge Planning Comments: CM met with patient and spouse at bedside after obtaining verbal consent. Patient states he plans on returning home after discharge with his . Patient states he will have family transport him home via private vehicle. Patient denies any discharge needs at this time. CM will continue to follow and assist as needed for discharge planning / needs. Vp Transportation: Georgiana Milner DCPIA - Discharge Planning Initial Assessment Updated by [email or web address]: Georgiana Milner on 11/29/18 1:31 pm * Is the patient Alert and Oriented? Yes * How many steps to enter\exit or inside your home? * PCP Cong Barr * Pharmacy [facility] * Preadmission Environment Home with Family * ADLs Independent * Equipment None * List name and contact numbers for known caregivers / representatives who currently or will assist patient after discharge: Dominga Ward - spouse- [phone] * Verbal permission to speak to the caregivers and representatives has been obtained from the patient. Yes * Community resources currently utilized None * Additional services required to return to the preadmission environment? No * Can the patient safely return to the preadmission environment? Yes * Has this patient been hospitalized within the prior 30 days at any hospital? No External Providers External Provider: Samson Next Contact Date: Service Request Date: Service Type: Resolution: Reviewer: Comments: Last DP export: 11/29/18 12:38 p Patient Name: EYAD WARD Page [phone] at 1710 All edits/amendments must be made on the electronic document DICTATION DATE: 12/14/181709 SENIOR MARKETING MANAGER: MONSTER 12/14/181709 RPT#: [id number] DC DATE: STATUS: ADM IN [facility] [address] [place] [address] END OF REPORT
--- NOTE | 2018-12-14 18:04 | MORECARE ---
CASE MANAGEMENT DISCHARGE SUMMARY PATIENT: EYAD WARD UNIT: [id number] ADM DATE: 11/28/18 AGE: 73 : 45 SEX: M ROOM/BED: D.[facility] AUTHOR: ALEE,DOC PHYSICIAN: REFERRING PHYSICIAN: PENNY FLORES MD DATE OF SERVICE: 12/14/18 Discharge Plan Patient Name: EYAD WARD Facility: [facility]:[place] : 1945 Planned Disposition: Home Anticipated Discharge Date: Discharge Date: Expected LOS: Initial Reviewer: [email or web address] Initial Review Date: 11/29/2018 Generated: 12/14/18 7:03 pm Comments DCP- Discharge Planning Updated by [email or web address]: Georgiana Milner on 12/14/18 4:[address] CM RECIEVED NOTICE THAT PATIENT MAY NEED HOME 02. WALK TEST COMPLETED AND PATIENT QUALIFIED FOR HOME 02. CM SPOKE WITH PATIENT AND PITER FORM SIGNED FOR DME. CM CONTACTED [facility] FOR HOME 02 AND FAXED RECORDS. DME TO DELIVER PORTABLE 02 TO ROOM TODAY. CM WILL CONTINUE TO FOLLOW AND ASSIST WITH DISCHARGE PLANNING NEEDED. DCP- Discharge Planning Updated by [email or web address]: Georgiana Milner on 11/29/18 12:[address] Patient Name: EYAD WARD Admission Status: Urgent Accout number: [id number] Admission Date: 11-28-2018 : 1945 Admission Diagnosis: Attending: PENNY FLORES Current LOS: 1 Anticipated DC Date: Planned Disposition: Home Primary Insurance: [employer] POS FLEXCARE Discharge Planning Comments: CM met with patient and spouse at bedside after obtaining verbal consent. Patient states he plans on returning home after discharge with his . Patient states he will have family transport him home via private vehicle. Patient denies any discharge needs at this time. CM will continue to follow and assist as needed for discharge planning / needs. Filler Blender: Georgiana Milner DCPIA - Discharge Planning Initial Assessment Updated by [id number]: Georgiana Milner on 11/29/18 1:31 pm * Is the patient Alert and Oriented? Yes * How many steps to enter\exit or inside your home? * PCP Cong Barr * Pharmacy [facility] [place] * Preadmission Environment Home with Family * ADLs Independent * Equipment None * List name and contact numbers for known caregivers / representatives who currently or will assist patient after discharge: Dominga Ward - spouse- [phone] * Verbal permission to speak to the caregivers and representatives has been obtained from the patient. Yes * Community resources currently utilized None * Additional services required to return to the preadmission environment? No * Can the patient safely return to the preadmission environment? Yes * Has this patient been hospitalized within the prior 30 days at any hospital? No Last DP export: 12/14/18 4:10 pm Patient Name: EYAD WARD Page [phone] at 1804 All edits/amendments must be made on the electronic document DICTATION DATE: 12/14/181802 ANIMAL NURSE: MONSTER 12/14/181802 RPT#: [id number] DC DATE: STATUS: ADM IN [facility] [address] [place] [address] END OF REPORT
--- NOTE | 2018-12-14 19:00 | NUR ---
DISCHARGE TO HOME. DISCHARGE INSTRUCTIONS GIVEN. RX SENT TO [facility]. HOME O2 IS HERE. LEFT WITH VIA PRIVATE AUTO.
--- NOTE | 2018-12-15 10:16 | MORECARE ---
CASE MANAGEMENT DISCHARGE SUMMARY PATIENT: EYAD WARD UNIT: [id number] ADM DATE: 11/28/18 AGE: 73 : 45 SEX: M ROOM/BED: D.[facility] AUTHOR: FRANCIS VICKERS PHYSICIAN: REFERRING PHYSICIAN: PENNY FLORES MD DATE OF SERVICE: 12/15/18 Discharge Plan Patient Name: EYAD WARD Facility: [facility]:[place] : 1945 Planned Disposition: Home Anticipated Discharge Date: Discharge Date: 12/14/2018 Expected LOS: Initial Reviewer: [email or web address] Initial Review Date: 11/29/2018 Generated: 12/15/18 11:16 am Comments DCP- Discharge Planning Updated by [email or web address]: Georgiana Milner on 12/14/18 4:[address] CM RECIEVED NOTICE THAT PATIENT MAY NEED HOME 02. WALK TEST COMPLETED AND PATIENT QUALIFIED FOR HOME 02. CM SPOKE WITH PATIENT AND PITER FORM SIGNED FOR DME. CM CONTACTED [facility] FOR HOME 02 AND FAXED RECORDS. DME TO DELIVER PORTABLE 02 TO ROOM TODAY. CM WILL CONTINUE TO FOLLOW AND ASSIST WITH DISCHARGE PLANNING NEEDED. DCP- Discharge Planning Updated by [email or web address]: Georgiana Milner on 11/29/18 12:[address] Patient Name: EYAD WARD Admission Status: Urgent Accout number: [id number] Admission Date: 11-28-2018 : 1945 Admission Diagnosis: Attending: PENNY FLORES Current LOS: 1 Anticipated DC Date: Planned Disposition: Home Primary Insurance: CIG[employer] POS FLEXCARE Discharge Planning Comments: CM met with patient and spouse at bedside after obtaining verbal consent. Patient states he plans on returning home after discharge with his . Patient states he will have family transport him home via private vehicle. Patient denies any discharge needs at this time. CM will continue to follow and assist as needed for discharge planning / needs. Medical Language Specialist: Georgiana Milner DCPIA - Discharge Planning Initial Assessment Updated by [id number]: Georgiana Milner on 11/29/18 1:31 pm * Is the patient Alert and Oriented? Yes * How many steps to enter\exit or inside your home? * PCP Cong Barr * Pharmacy [facility] - [place] * Preadmission Environment Home with Family * ADLs Independent * Equipment None * List name and contact numbers for known caregivers / representatives who currently or will assist patient after discharge: Dominga Ward - spouse- [phone] * Verbal permission to speak to the caregivers and representatives has been obtained from the patient. Yes * Community resources currently utilized None * Additional services required to return to the preadmission environment? No * Can the patient safely return to the preadmission environment? Yes * Has this patient been hospitalized within the prior 30 days at any hospital? No Last DP export: 12/14/18 5:03 pm Patient Name: EYAD WARD Page 95068 at 1016 All edits/amendments must be made on the electronic document DICTATION DATE: 12/15/18 1015 PETROLEUM INSPECTOR SUPERVISOR: MONSTER 12/15/18 1015 RPT#: [id number] DC DATE:12/14/18 STATUS: DIS IN [facility] [address] [place] [address] END OF REPORT
== END 2018-12-14 19:21 | disposition home or self-care (01) | DRG 164 ==
LOC: D.CVICU 05:00 → D.SDCHOLD 05:00 → D.CVICU 12:04
PROVIDERS: Internal Medicine Cardiovascular Disease; Internal Medicine Medical Oncology; Specialist; ADMIT Thoracic Surgery (Cardiothoracic Vascular Surgery)
PROC: 0BJ08ZZ Inspection of Tracheobronchial Tree, Via Natural or Artificial Opening Endoscopic (ICD-10-PCS; 2018-11-28)
PROC: 0BTF0ZZ Resection of Right Lower Lung Lobe, Open Approach (ICD-10-PCS; principal; 2018-11-28 07:30)
PROC: 0BTD0ZZ Resection of Right Middle Lung Lobe, Open Approach (ICD-10-PCS; 2018-11-28 07:30)
PROC: 07T70ZZ Resection of Thorax Lymphatic, Open Approach (ICD-10-PCS; 2018-11-28 07:30)
PROC: 0W9930Z Drainage of Right Pleural Cavity with Drainage Device, Percutaneous Approach (ICD-10-PCS; 2018-12-04)
DX: C34.2 Malignant neoplasm of middle lobe, bronchus or lung (principal); F05 Delirium due to known physiological condition; J95.812 Postprocedural air leak; I97.190 Other postprocedural cardiac functional disturbances following cardiac surgery; C79.31 Secondary malignant neoplasm of brain; J90 Pleural effusion, not elsewhere classified; T79.7XXA Traumatic subcutaneous emphysema, initial encounter; J95.811 Postprocedural pneumothorax; I97.191 Other postprocedural cardiac functional disturbances following other surgery; I48.1 Persistent atrial fibrillation; F03.91 Unspecified dementia, unspecified severity, with behavioral disturbance; T81.82XA Emphysema (subcutaneous) resulting from a procedure, initial encounter

== ENCOUNTER → 2018-12-15 10:05 | Outpatient (CLI) | payer OTHER, MEDICARE ==
[2018-12-01 10:35] VITALS: BMI 22.4
[~2018-12-15 10:05] MED LIST changes: +AMIODARONE HCL200 MG PO; +ASPIRIN EC81 M1 PO; +CARDIZEM30 MG PO; +DEXAMETHASONE2 MG PO; +K-DUR20 MEQ PO; +LOPRESSOR25 MG PO; +SPIRIVA18 MCG INH
== END | disposition home or self-care (01) ==
LOC: D.RAD 10:05
DX: J90 Pleural effusion, not elsewhere classified (principal)

== ENCOUNTER 2018-12-18 11:40 | Inpatient (IN) | payer OTHER, MEDICARE ==
[~2018-12-18] VITALS: Ht 177.8 cm; Wt 71.1 kg
[2018-12-18] VITALS (14 sets, daily range): BP systolic 91–105; BP diastolic 61–69; BMI 19.5
[~2018-12-18 11:40] MED LIST changes: -DEXAMETHASONE2 MG PO
[2018-12-18] MEDS ORDERED: DEXAMETHASONE2 MG PO (14:28)
[2018-12-18 14:53] LABS: HEMATOCRIT 41.8 % (42.0-54.0); HEMOGLOBIN 14.3 g/dL (13.5-17.5); MCH 31.8 pg (26.0-34.0); MCHC 34.2 g/dL (31.0-37.0); MCV 92.9 fL (80.0-100.0); RBC 4.5 10x6/uL (4.20-6.10); RDW 12.5 % (11.5-14.5); WBC 17.4 10x3/uL (4.8-10.8)
[2018-12-18 15:06] LABS: APTT 25.1 SECONDS (22.8-39.4); INR 1.06 (0.85-1.17); PROTIME 13.3 SECONDS (11.6-15.0)
[2018-12-18 15:07] LABS: ANION GAP 14.4 mmol/L (8-16); CALCIUM 8.2 mg/dL (8.5-10.1); CARBON DIOXIDE 26.1 mmol/L (21.0-32.0); CREATININE - SERUM 1.2 mg/dL (0.6-1.3); POTASSIUM - SERUM 5.5 mmol/L (3.5-5.1)
--- NOTE | 2018-12-18 15:13 | NUR ---
PT DIRECT ADMIT FROM DR MCNEILL OFFICE ARRIVED TO [facility] AT [id number] ALERT AN DORIENTED VSS O2 2L NC, DENIES PAIN, EDEMA TO FACE AND EYES PRESENT, R CHEST SUBQ EMPHYSEMA PRESENT, R LAT CHEST PREVIOUS CT SITES WELL APPROXIMATED WITH NO DRAINAGE PRESENT, R POSTERIOR SIDE PREVIOUS THORACOTOMY INCISION HEALING WITH NO DRAINAGE, VERY DIMINISHED LUNG SOUNDS WITH ABSENT RML/RLL, ASSISTED TO BED WITH MONITORING EQUIPMENT PLACED AND ALARMS SET, AT BEDSIDE, WRITTEN ORDERS REVIEWED AND ENTERED INTO COMPUTER, IR LEIDA AND KRANTHI AWARE OF CONSULT, LAC 20G PIV INSERTED SALINE LOCKED, CONSENT FOR BLOOD PRODUCTS AND IR PROCEDURE OBTAINED, PT AND DENY ANY QUESTIONS, WILL CONTINUE TO MONITOR
--- NOTE | 2018-12-18 17:05 | NUR ---
SPOKE WITH RADIOLOGY, STATED THEY WOULD BE PLACING CT WHEN DONE WITH THE CURRENT PROCEDURE
--- NOTE | 2018-12-18 17:32 | NUR ---
PT TO IR WITH IR STAFF
--- NOTE | 2018-12-18 18:46 | NUR ---
PT RETURNED TO ROOM 184, PLACED ON MONITORING EQUIPMENT AND CT ATTACKED TO 20CM OF SUCTION PER DR FLORES, NO DRAINAGE IN CHAMBER, AIR LEAK PRESENT
--- NOTE | 2018-12-18 19:15 | NUR ---
REPORT RECEIVED CARE ASSUMED INITIAL SHIFT ASSESSMENT COMPLETED SEE FLOWSHEET.. PT AAOX4 CHEERFUL REQUESTING FOOD. PT AWARE HE IS TO BE NPO AFTER MIDNIGHT FOR PROCEDURE. PT BEING MONITORED PER STANDARD ICU PROTOCOL WITH ALL ALARMS SET VERIFIED AND AUDIBLE AT NURSES STATION. PT NOTED TO HAVE EXTENSIVE SUBQEMPHYSEMA WITH PERIORBITAL INVOLVEMENT AND REACHING ACROSS WHOLE BACK AND TORSO AND TO WAIST. RIGHT LATERAL CT TO 20CM SUCTION WITH SERO DRAINAGE NOTED. REPORTED TO HAVE AIR LEAK PRESENT. PT TEACHING DONE ON SAFETY AND CALLING FOR ASSISTANCE FOR GETTING OUT OF BED ETC. PT VERBALIZED COMPREHENSION AND AGREEMENT TO DO SO. BILATERAL SCD'S ON. BED IN LOW POSITION CALL LIGHT IN REACH.
--- NOTE | 2018-12-18 21:20 | NUR ---
CALL PLACED TO DR. FLORES TO REPORT PT WITH PAIN HE DSCRIBED A SHARP KNIFE STABBING PAIN IN HIS RIGHT SHOULDER BLADE. THIS PAIN IS OF ACUTE ONSET WITH PT CHANGE FROM CHEERFUL SMILING PT TO WRITHING IN PAIN UNABLE TO SIT STILL. PT DID SIT STILL AND PAIN SUBSIDED WHEN GENTLE FIRM SUPPORTIVE PRESSURE WITH HAND HELD TO INCISIONAL SCAR ON RIGHT SCAPULA. OF NOTE THERE IS NOW A MODERATE AIR LEAK IN RIGHT LATERAL CHEST TUBE. CHEST TUBE NOW WITH 100ML SEROUS DRAINAGE. PAIN SUBSIDED AFTER ABOUT 4 MINUTES AND PT ABLE TO LEAN BACK AGAINST PILLOWS FOR CONSTANT PRESSURE, NOW SMILING ALTHOUGH STILL QUITE UNCOMFORTALBE. CHEST TUBE REINFORCED AT SITE WITH TAPE AND AIR LEAK DIMINISHED BUT REMAINS PRESENT. REPORTED CURRENT VS B/P 100/61 SPO2 96% ON 2L N/C. NEW ORDERS RECEIVED REPEATED AND VERIFIED TO OBTAIN STAT CXR, WITH STAT READ, HOLD LOPRESSOR, MORPHINE FOR PAIN AND PLASMOLYTE FOR IVF. RADIOLOGY NOTIFIED OF NEED FOR STAT CXR AND PT NOTIFIED OF ORDERS.
--- NOTE | 2018-12-18 22:30 | NUR ---
DR. FLORES NOTIFIED OF CXR RESULTS WITH ORDERS TO ORDER PCXR FOR AM AND NOTIFY HIM IS PT'S CONDITION CHANGES.
--- NOTE | 2018-12-18 23:00 | NUR ---
SHIFT REASSESSMENT COMPLETED AND CHARTED. CONTINUE TO MONITOR FOR CHANGES. PT DOES HAVE A GRADUAL CANGE IN THE APPEARANCE OF HIS PERIORBITL INVOLVEMENT. NO OTHER SIGNIFICANT CHANGES EXCEPT REPORTED IN PREVIOUS NOTES
[2018-12-19] VITALS (24 sets, daily range): BP systolic 91–113; BP diastolic 56–80; Ht 177.8 cm; Wt 71.1 kg
--- NOTE | 2018-12-19 01:00 | NUR ---
CONTINUE TO TREAT PAIN DOCUMENTED ON JAN.
--- NOTE | 2018-12-19 03:00 | NUR ---
SHIFT REASSESSMENT COMPLETED PER FLOWSHEET.
--- NOTE | 2018-12-19 04:30 | NUR ---
PT IS AT THIS TIME SLEEPING QUIETLY. REG REG AND NONLABORED
[2018-12-19 06:33] LABS: HEMATOCRIT 39.6 % (42.0-54.0); HEMOGLOBIN 13.2 g/dL (13.5-17.5); MCHC 33.3 g/dL (31.0-37.0); MEAN PLATELET VOLUME 9.1 fL (7.4-10.4); RBC 4.26 10x6/uL (4.20-6.10); RDW 12.5 % (11.5-14.5); WBC 14.1 10x3/uL (4.8-10.8)
[2018-12-19 06:41] LABS: CALC OSMOLALITY 280 mosm/kg (275-300); CARBON DIOXIDE 29.3 mmol/L (21.0-32.0); CHLORIDE - SERUM 102 mmol/L (98-107); CREATININE - SERUM 0.9 mg/dL (0.6-1.3); GLUCOSE 123 mg/dL (74-106); POTASSIUM - SERUM 5.4 mmol/L (3.5-5.1); SODIUM 136 mmol/L (136-145); UREA NITROGEN 35 mg/dL (7-18); eGFR NON AFRICAN AMERICAN 88 mL/min (90-120)
--- NOTE | 2018-12-19 07:23 | NUR ---
UP IN BED RESITNG AT THIS TIME. RESPIRATIONS STEADY AND UNLABORED. NO ACUTE DISTRESS NOTED. CHEST TUBE TO RT SIDE NOTED WITH AIR LEAK. PERIORBITAL EDEMA NOTED. SEE SHIFT ASSESSMENT FOR FURTHER INFORMATION. AWAKENS EASILY WHEN STAFF STATES PT NAME. CALL LIGHT IN REACH. WILL CONTINUE PLAN OF CARE.
--- NOTE | 2018-12-19 09:22 | NUR ---
INCENTIVE SPIROMETER EFFORT NOTED AT 1750.
--- NOTE | 2018-12-19 11:29 | NUR ---
UP IN BED VISITING WITH AT THIS TIME. NO ACUTE DISTRESS NOTED. DENIES ANY NEEDS. PT NPO FOR BRONCH TODAY. WILL CONTINUE PLAN OF CARE.
--- NOTE | 2018-12-19 13:28 | MORECARE ---
CASE MANAGEMENT DISCHARGE SUMMARY PATIENT: EYAD THOMPSON UNIT: [id number] ADM DATE: 12/18/18 AGE: 73 : 45 SEX: M [facility] AUTHOR: FRANCIS VICKERS PHYSICIAN: REFERRING PHYSICIAN: PENNY FLORES MD DATE OF SERVICE: 12/19/18 Discharge Plan Patient Name: EYAD THOMPSON Facility: [facility]:[place] : 1945 Planned Disposition: Anticipated Discharge Date: Discharge Date: Expected LOS: Initial Reviewer: [email or web address] Initial Review Date: 12/18/2018 Generated: 12/19/18 2:28 pm Patient Name: EYAD THOMPSON Page 96968 at 1328 All edits/amendments must be made on the electronic document DICTATION DATE: 12/19/18 1328 MANAGER OF FINANCE: MONSTER 12/19/18 1328 RPT#: [id number] DC DATE: STATUS: ADM IN [facility] [address] [place] [address] END OF REPORT
--- NOTE | 2018-12-19 13:37 | MORECARE ---
CASE MANAGEMENT DISCHARGE SUMMARY PATIENT: EYAD WARD UNIT: [id number] ADM DATE: 12/18/18 AGE: 73 : 45 SEX: M ROOM/BED: D[facility] AUTHOR: FRANCIS VICKERS PHYSICIAN: REFERRING PHYSICIAN: PENNY FLORES MD DATE OF SERVICE: 12/19/18 Discharge Plan Patient Name: EYAD WARD [facility] : 1945 Planned Disposition: Anticipated Discharge Date: Discharge Date: Expected LOS: Initial Reviewer: [email or web address] Initial Review Date: 12/18/2018 Generated: 12/19/18 2:37 pm DCPIA - Discharge Planning Initial Assessment Updated by [email or web address]: Georginaa Milner on 12/19/18 1:36 pm * Is the patient Alert and Oriented? Yes * How many steps to enter\exit or inside your home? * PCP Cong Barr * Pharmacy [facility] [address] [facility] [place] * Preadmission Environment Home with Family * ADLs Independent * Equipment Oxygen * Other Equipment 02 with [employer] * List name and contact numbers for known caregivers / representatives who currently or will assist patient after discharge: Dominga Ward - - [phone] * Verbal permission to speak to the caregivers and representatives has been obtained from the patient. Yes * Community resources currently utilized None * Additional services required to return to the preadmission environment? No * Can the patient safely return to the preadmission environment? Yes * Has this patient been hospitalized within the prior 30 days at any hospital? Yes Last DP export: 12/19/18 12:28 p Patient Name: EYAD WARD Page 33385 at 1337 All edits/amendments must be made on the electronic document DICTATION DATE: 12/19/181335 SCRAP CRUSHER: MONSTER 12/19/181335 RPT#: [id number] DC DATE: STATUS: ADM IN [facility] [address] [place] [address] END OF REPORT
--- NOTE | 2018-12-19 13:40 | NUR ---
UP IN BED AWAKE AT THIS TIME. NO ACUTE DISTRESS NOTED. WILL CONTINUE PLAN OF CARE.
--- NOTE | 2018-12-19 13:45 | MORECARE ---
CASE MANAGEMENT DISCHARGE SUMMARY PATIENT: EYAD WARD UNIT: [id number] ADM DATE: 12/18/18 AGE: 73 : 45 SEX: M ROOM/BED: D[facility] AUTHOR: ALEEDOC PHYSICIAN: REFERRING PHYSICIAN: PENNY FLORES MD DATE OF SERVICE: 12/19/18 Discharge Plan Patient Name: EYAD WARD Facility: [facility]:[place] : 1945 Planned Disposition: Anticipated Discharge Date: Discharge Date: Expected LOS: Initial Reviewer: [email or web address] Initial Review Date: 12/18/2018 Generated: 12/19/18 2:45 pm Comments DCP- Discharge Planning Updated by [email or web address]: Georgiana Milner on 12/19/18 12:[address] Patient Name: EYAD WARD Admission Status: Elective Accout number: [id number] Admission Date: 12-18-2018 : 1945 Admission Diagnosis: Attending: PENNY FLORES Current LOS: 1 Anticipated DC Date: Planned Disposition: Primary Insurance: [employer]IG[employer] POS FLEXCARE Discharge Planning Comments: CM met with patient and spouse at bedside after obtaining verbal consent. Patient states he plans on returning home after discharge with his . Patient states he will have family transport him home via private vehicle. Patient does have home 02 with [facility]. Patient denies any discharge needs at this time. Patient may need home health or rehab due to prolonged hospitalization. CM will continue to follow and assist as needed for discharge planning / needs. DCPIA - Discharge Planning Initial Assessment Updated by [email or web address]: Georgiana Milner on 12/19/18 1:36 pm * Is the patient Alert and Oriented? Yes * How many steps to enter\exit or inside your home? * PCP Cong Barr * Pharmacy [facility] - [address] [place] * Preadmission Environment Home with Family * ADLs Independent * Equipment Oxygen * Other Equipment 02 with [employer] * List name and contact numbers for known caregivers / representatives who currently or will assist patient after discharge: Dominga Ward - - [phone] * Verbal permission to speak to the caregivers and representatives has been obtained from the patient. Yes * Community resources currently utilized None * Additional services required to return to the preadmission environment? No * Can the patient safely return to the preadmission environment? Yes * Has this patient been hospitalized within the prior 30 days at any hospital? Yes Last DP export: 12/19/18 12:37 p Patient Name: EYAD WARD Page 85446 at 1345 All edits/amendments must be made on the electronic document DICTATION DATE: 12/19/18 1345 CLOTH PICKER: MONSETR 12/19/18 1345 RPT#: [id number] DC DATE: STATUS: ADM IN [facility] [address] [place] [address] END OF REPORT
--- NOTE | 2018-12-19 14:54 | NUR ---
PER DR WIGGINS, WILL DO BRONCHOSCOPY TOMORROW INSTEAD OF TODAY; PT CAN EAT NOW. KEEP NPO AFTER MIDNIGHT.
--- NOTE | 2018-12-19 16:59 | NUR ---
AIR MATRESS OVERLAY PROVIDED TO PT BED AT THIS TIME. NO ACUTE DISTRESS NOTED. TOTAL LINEN CHANGE ALSO PROVIDED. WILL CONTINUE PLAN OF CARE.
--- NOTE | 2018-12-19 18:42 | NUR ---
UP IN BED AWAKE AT THIS TIME. NO ACUTE DISTRESS NOTED. CALL LIGHT IN REACH. WILL CONTINUE PLAN OF CARE.
--- NOTE | 2018-12-19 19:00 | NUR ---
RESTING IN BED WITH EYES CLOSED, ROUSES EASILY TO VERBAL STIMULI. SMILES EASILY, DENIES ANY PAIN OR DIFFICULTY BREATHING AT THIS TIME. 20 GAUGE IV TO L AC PATENT/DRSG INTACT. IV TUBING/FLUIDS LABELED/DATED/CURRENT AND INFUSING PER ORDER. RT LATERAL CHEST TUBE INTACT, CONNECTED TO CONTINUOUS SUCTION OF 20 CM DRAINING SEROUS FLUID INTO PLEURAVAC, NO AIR LEAK OBSERBED. BED IN LOW POSITION, SIDE RAILS UP X2, CALL LIGHT WITHIN REACH AND PATIENT ABLE TO UTILIZE CALL LIGHT TO MAKE NEEDS KNOWN.
--- NOTE | 2018-12-19 21:00 | NUR ---
RESTING IN BED WITH EYES CLOSD. EASILY ROUSED BY VERBAL STIMULI. ALERT AND ORIENTED. DENIES PAIN OR DISTRESS AT PRESENT. RT LATERAL CX TUBE INTACT, CONNECTED TO 20CM CONTINOUS SUCTION. SR UP X2. CALL LIGHT IN REACH.
--- NOTE | 2018-12-19 23:00 | NUR ---
RESTING WITH EYES CLOSED, ROUSES EASILY TO VERBAL STIMULI. NO CHANGE FROM LAST ASSESSMENT. DENIES PAIN OR RESP DISTRESS. CALL LIGHT IN REACH. SR UP X2. BED IN LOW POSITION.
[2018-12-20] VITALS (24 sets, daily range): BP systolic 81–109; BP diastolic 47–75
--- NOTE | 2018-12-20 01:00 | NUR ---
RESTING WITH EYES CLOSED, ROUSES EASILY TO VERBAL STIMULI. NO CHANGE FROM PREVIOUS ASSESSMENT. DENIES PAIN OR RESP DISTRESS. CALL LIGHT IN REACH. BED IN LOW POS. SR UP X2
--- NOTE | 2018-12-20 03:00 | NUR ---
RESTING QUITELY WITH EYES CLOSED. EASILY ROUSED AND ALERT. DENIES PAIN OR RESP DISTRESS. NO CHANGE FROM PREVIOUS ASSESSMENT. SR UP X2. CALL LIGHT IN REACH. BED IN LOW POSITION. URINAL WITHIN EASY REACH OF PT.
--- NOTE | 2018-12-20 05:00 | NUR ---
AWAKE AND ALERT. DENIES PAIN OR RESP DIFFICULTY. SR UP X 2. CALL LIGHT IN REACH. BED IN LOW POSITION.
[2018-12-20 06:42] LABS: HEMATOCRIT 36.7 % (42.0-54.0); HEMOGLOBIN 12.2 g/dL (13.5-17.5); MCH 30.8 pg (26.0-34.0); MCHC 33.2 g/dL (31.0-37.0); MCV 92.7 fL (80.0-100.0); RBC 3.96 10x6/uL (4.20-6.10); RDW 12.6 % (11.5-14.5); WBC 13.8 10x3/uL (4.8-10.8)
[2018-12-20 07:12] LABS: CALC OSMOLALITY 281 mosm/kg (275-300); CALCIUM 7.6 mg/dL (8.5-10.1); CARBON DIOXIDE 28.2 mmol/L (21.0-32.0); CHLORIDE - SERUM 103 mmol/L (98-107); CREATININE - SERUM 0.9 mg/dL (0.6-1.3); GLUCOSE 95 mg/dL (74-106); SODIUM 138 mmol/L (136-145); UREA NITROGEN 28 mg/dL (7-18); eGFR NON AFRICAN AMERICAN 88 mL/min (90-120)
--- NOTE | 2018-12-20 09:44 | NUR ---
0700 PT ALERT AND ORIENTED O2 2L NC, DENIES PAIN, VSS, R LAT CHEST WITH PREVIOUS CT SITES AND CURRENT CT SITE, CT TO 20CM SUCTION NO AIR LEAK NOTED, DRESSING CDI, SEROUS DRAINAGE, R POSTERIOR CHEST WITH PREVIOUS THORACOTOMY INCISION WELL APPROXIMATED AND HEALING, USES URINAL, CALL LIGHT WITHIN REACH 0900 TOOK AM MEDS WITH SIP OF WATER, HELD LOPRESSOR AFTER SPEAKING WITH DR MCNEILL NURSES MED HAS BEEN HELD THE PAST FEW DOSES FOR LOW BP, WILL CONTINUE TO MONITOR
--- NOTE | 2018-12-20 13:34 | NUR ---
PREPPING FOR BRONCOSCOPY PULLED VERSED PER VERBAL ORDER FROM DR WIGGINS, NONE GIVEN AT THIS TIME
--- NOTE | 2018-12-20 14:00 | NUR ---
PIV TO RFA X1 ATTEMPT STARTED PT REQUESTED LAC PIV ALARMING PUMP
--- NOTE | 2018-12-20 14:01 | NUR ---
[address] WIGGINS DURING BEDSIDE BRONCHOSCOPY, PT TOLERATED WELL, WIFES QUESTIONS ANSWERED BY DR WIGGINS
--- NOTE | 2018-12-20 17:31 | NUR ---
1500 REPOS[address]ED [address] MCNEILL NURSE [place] AND ASSISTED PT UP TO CHAIR, ATE CHICK CORRY A SALAD BROUGHT AND MILKSHAKE [address] LO ABOUT PT PAIN, ORDERS FOR NORCO 5 Q4 PRN, VERIFIED ORDER
--- NOTE | 2018-12-20 19:00 | NUR ---
RESTING QUIETLY IN BED WITH EYES CLOSED. EASILY ROUSED AND ALERT. SMILES EASILY. SHIFT ASSESSMENT COMPLETED AND NO DISTRESS OBSERVED. DENIES PAIN OR RESP DISTRESS. CX TUBE INTACT CONNECTED TO 20CM CONTINUOUS SX INTO PLEURIVAC WITH NO LEAK OBSERVED. DRAINING SEROUS FLUID. IV FLUID/TUBING DATED, LABELED AND CURRENT. SIDE RAILS UP X2. BED IN LOW POSIITION. CALL LIGHT IN REACH AND PT IS ABLE TO UTILIZE TO MAKE NEEDS KNOWN.
--- NOTE | 2018-12-20 21:00 | NUR ---
RESTING WITH EYES CLOSED. EASILY ROUSED AND ALERT. DENIES PAIN/ RESP DISTRESS. CX TUBE INTACT CONNECTED TO ORDERED SX AND DRAINING INTO PLEURIVAC. SR UP X2. BED IN LOW POS. CALL LIGHT IN REACH.
--- NOTE | 2018-12-20 23:00 | NUR ---
SITTING UP IN BED EATING ICE CREAM. ALERT AND ORIENTED. SPEECH CLEAR. DENIES PAIN/ RESP DISTRESS. SHIFT REASSESSMENT DONE WITH NO CHANGES OBSERVED. CALL LIGHT IN REACH. BED IN LOW POS. CX TUBE INTACT CONNECTED TO ORDERED SX AND DRAINING SEROUS FLUID INTO PLEUIVAC.
[2018-12-21] VITALS (27 sets, daily range): BP systolic 83–103; BP diastolic 34–69
--- NOTE | 2018-12-21 01:00 | NUR ---
RESTING IN BED WITH EYES CLOSED. EASILY ROUSED AND ALERT. DENIES PAIN OR RESP DIFFICULTY. NO DISTRESS OBSERVED. CALL LIGHT IN REACH.
--- NOTE | 2018-12-21 03:00 | NUR ---
AWAKE AND ALERT. SHIFT REASSESSMENT COMPLETED. NO CHANGES OBSERVED.
--- NOTE | 2018-12-21 05:00 | NUR ---
AWAKE AND ALERT. DENIES PAIN OR RESP DIFF AT PRESENT. CALL LIGHT IN REACH. SR UP X 2.
[2018-12-21 06:02] LABS: HEMATOCRIT 37.1 % (42.0-54.0); HEMOGLOBIN 12.3 g/dL (13.5-17.5); MCH 30.7 pg (26.0-34.0); MCHC 33.2 g/dL (31.0-37.0); MCV 92.5 fL (80.0-100.0); MEAN PLATELET VOLUME 8.8 fL (7.4-10.4); RBC 4.01 10x6/uL (4.20-6.10); RDW 12.5 % (11.5-14.5)
[2018-12-21 06:24] LABS: CALC OSMOLALITY 277 mosm/kg (275-300); CALCIUM 7.6 mg/dL (8.5-10.1); CARBON DIOXIDE 28.9 mmol/L (21.0-32.0); CHLORIDE - SERUM 100 mmol/L (98-107); CREATININE - SERUM 0.8 mg/dL (0.6-1.3); GLUCOSE 130 mg/dL (74-106); POTASSIUM - SERUM 4.4 mmol/L (3.5-5.1); SODIUM 136 mmol/L (136-145); UREA NITROGEN 23 mg/dL (7-18); eGFR NON AFRICAN AMERICAN > 90 mL/min (90-120)
[2018-12-21 06:26] LABS: WBC 17.7 10x3/uL (4.8-10.8)
--- NOTE | 2018-12-21 09:46 | NUR ---
0700 PT RECIEVED ALERT AN DORIENTED O2 2L NC VSS DENIES PAIN, EDEMA TO EYES DECREASED FROM YESTERDAY, PIV TO RAC AND LFA CDI PATENT, PLASMALYTE 30ML/HR, CONTIENNT, DENIES PAIN, CT TO 20CM SUCTION, NO AIR LEAK, SEROUS DRAINAGE, ASSISTED UP TO CHAIR, DR FLORES IN UNIT AND AWARE OF BP UPPER 80S, MAP60S, ORDERS TO DC LOPRESSOR AND IVF, OKAYED TO TAKE OFF SUCTION FOR PT, PT TERRI AWARE 0800 ATE 75% BREAKFAST TRAY 0900 REPOSITIONED IN CHAIR, DENIES ALL NEEDS
--- NOTE | 2018-12-21 10:25 | NUR ---
Nutrition Follow Up: Pt stated that his appetite is good. He said that he loves Boost and has been drinking this. RD encouraged pt to continue with good po intake to maintain strength, promote healing, etc. Diet: Regular; Boost TID PO Intake: 100% meal avg No BM since admit I<O Wt stable Meds and labs reviewed Rec continue current diet, supplement regimen. RD following.
--- NOTE | 2018-12-21 12:46 | NUR ---
REPORT RECEVIED FROM RADHA HENLEY. VSS. PT DENIES PAIN/DISCOMFORT. DENIES NEEDS AT THIS TIME.
[2018-12-21 17:31] LABS: MAGNESIUM - SERUM 1.9 mg/dL (1.8-2.4)
--- NOTE | 2018-12-21 17:45 | NUR ---
PT COMPLAINING OF SEVERE RIGHT LATERAL CHEST PAIN. DR FLORES IN THE UNIT TO ASSESS THE PT. PRN NORCO GIVEN AND WAS INSTRUCTED TO GET THE PT BACK INTO BED. PT WAS ASSISTED IN BED.
--- NOTE | 2018-12-21 18:32 | NUR ---
PT IN HIS BED AND STATES THAT THE PAIN HAS SUBSIDED AND IS NOW DENING PAIN. "THE PAIN GOES AWAY WHENEVER I GET BACK INTO BED". CALL LIGHT IN REACH. WILL CONT POC.
[2018-12-22] VITALS (23 sets, daily range): BP systolic 86–119; BP diastolic 33–72
[2018-12-22 04:36] LABS: BASOPHILS 0.1 % (0-2); EOSINOPHILS 6.2 % (0-7); HEMOGLOBIN 11.3 g/dL (13.5-17.5); IMMATURE GRANULOCYTES 0.6 % (0-5); LYMPHOCYTES 11.3 % (15-50); MCH 30.6 pg (26.0-34.0); MCHC 33.2 g/dL (31.0-37.0); MCV 92.1 fL (80.0-100.0); MEAN PLATELET VOLUME 8.9 fL (7.4-10.4); MONOCYTES 6.7 % (2-11); NEUTROPHILS 75.1 % (40-80); PLATELET COUNT 186 10x3/uL (130-400); RBC 3.69 10x6/uL (4.20-6.10); RDW 12.5 % (11.5-14.5)
[2018-12-22 04:37] LABS: WBC 11.4 10x3/uL (4.8-10.8)
[2018-12-22 04:54] LABS: ALBUMIN 1.8 g/dL (3.4-5.0); ALKALINE PHOSPHATASE 66 U/L (46-116); ALT (SGPT) 58 U/L (10-68); BILIRUBIN - TOTAL 0.51 mg/dL (0.2-1.3); CALC OSMOLALITY 269 mosm/kg (275-300); CALCIUM 7.7 mg/dL (8.5-10.1); CARBON DIOXIDE 29.1 mmol/L (21.0-32.0); CHLORIDE - SERUM 102 mmol/L (98-107); CREATININE - SERUM 0.9 mg/dL (0.6-1.3); GLUCOSE 105 mg/dL (74-106); PROTEIN - SERUM 4.9 g/dL (6.4-8.2); SODIUM 133 mmol/L (136-145); UREA NITROGEN 24 mg/dL (7-18); eGFR NON AFRICAN AMERICAN 88 mL/min (90-120)
[2018-12-22 04:56] LABS: POTASSIUM - SERUM 5.2 mmol/L (3.5-5.1)
--- NOTE | 2018-12-22 15:58 | NUR ---
0715-RECIEVED PER FLOW SHEET--UP IN CHAIR-NOTED SUBQUE EMPYSEMA TO R LATERAL -MIDSTRENAL CHEST AREA-TO R EYE/FACIAL NECK AREA-R LATERAL-ALERT AND VERBALLY APPROPRIATE-SR ON MONITOR 0830-IR TECH AT BEDSIDE DIRECTED BY DR FLORES-R LATERAL CHEST TUBE REMOVED AND TOLERATED MODERATELY BY PT-STATED EXPERIENCE PAIN-SHARP WITH REMOVAL AND QUICKLY WENT AWAY-O2 SAT INCREASED TO99% WITH REMOVAL OF CHEST TUBE 1100-REQUESTED ASSISTANCE TO RETURN TO BED-MINIMAL REQUIRED- 91500-XCFY LINE NURSE AT [facility] AND INSERTED MIDLINE IN L UPPER ARM WITH PT CONSENT -NO DIFFICULTY 1230- AT [facility] -LUNCH TRAY TAKEN-KBRN
--- NOTE | 2018-12-22 18:27 | NUR ---
PT SITTING UP IN CHAIR. CONFUSED TO DATE AND TIME. PT CONVINCED THAT IT IS 6 O'CLOCK IN THE MORNING. ATTEMPTED TO EXPLAIN THAT IT WAS 6:30PM. HE CONTINUES TO BE CONFUSED AND DEMANDING TO SEE DR. FLORES.
--- NOTE | 2018-12-22 18:39 | NUR ---
PT BACK IN BED. SCD'S ON BOTH LEGS. REFUSED TO EAT DINNER. CHOCOLATE BOOST LEFT AT BEDSIDE PER PT REQUEST. VOIDED 175ML OF DEEPTHI URINE AT THIS TIME. NO FURTHER NEEDS. WILL CONTINUE TO MONITOR.
--- NOTE | 2018-12-22 19:14 | NUR ---
REPORT RECEIVED FROM CAMMY HENLEY. INITAL ASSESSMENT COMPLETED, SEE FLOWSHEET. PT IS RESTING IN BED WITH EYES OPEN. PT WAS ORIENTED X4 AT THIS TIME. NO SIGNS OF CONFUSION. PT LAUGHING AND JOKING AT THIS TIME. NO SIGNS OF ACUTE DISTRESS. WILL CONTINUE TO MONTIOR.
--- NOTE | 2018-12-22 21:14 | NUR ---
PT IS RESTING IN BED WITH EYES CLOSED. NO SIGNS OF ACUTE DISTRESS. WILL CONTINUE TO MONITOR.
--- NOTE | 2018-12-22 23:15 | NUR ---
REASSESSMENT COMPLETED, SEE FLOWSHEET. ASSISTED PT UP TO THE BATHROOM. NO SIGNS OF ACUTE DISTRESS. WILL CONTINUE TO MONITOR.
[2018-12-23] VITALS (13 sets, daily range): BP systolic 63–103; BP diastolic 30–72
--- NOTE | 2018-12-23 01:15 | NUR ---
PT IS RESTING IN BED WITH EYES CLOSED. NO NEEDS VOICED. NO SIGNS OF ACUTE DISTRESS. WILL CONTINUE TO MONITOR.
--- NOTE | 2018-12-23 03:07 | NUR ---
REASSESSMENT COMPLETED, SEE FLOWSHEET. PT IS RESTING IN BED WITH EYES CLOSED AT THIS TIME. NO SIGNS OF ACUTE DISTRESS. NO NEEDS VOICED. WILL CONTINUE TO MONITOR.
--- NOTE | 2018-12-23 05:07 | NUR ---
PT IS RESTING IN THE CHAIR AT THIS TIME WITH EYES OPEN. PT RECEIVED A FULL BED BATH AND LINEN CHANGE. PT DENIES NEEDS AT THIS TIME. NO SIGNS OF ACUTE DISTRESS. WILL CONTINUE TO MONITOR.
[2018-12-23 05:43] LABS: BASOPHILS 0.2 % (0-2); HEMATOCRIT 33.8 % (42.0-54.0); HEMOGLOBIN 11.5 g/dL (13.5-17.5); IMMATURE GRANULOCYTES 0.7 % (0-5); LYMPHOCYTES 7.3 % (15-50); MCH 31.2 pg (26.0-34.0); MCV 91.6 fL (80.0-100.0); MONOCYTES 5.3 % (2-11); NEUTROPHILS 81.5 % (40-80); PLATELET COUNT 185 10x3/uL (130-400); RBC 3.69 10x6/uL (4.20-6.10); RDW 12.6 % (11.5-14.5); WBC 12.1 10x3/uL (4.8-10.8)
[2018-12-23 06:10] LABS: CALC OSMOLALITY 267 mosm/kg (275-300); CALCIUM 7.9 mg/dL (8.5-10.1); CARBON DIOXIDE 26.1 mmol/L (21.0-32.0); CHLORIDE - SERUM 99 mmol/L (98-107); CREATININE - SERUM 0.8 mg/dL (0.6-1.3); GLUCOSE 105 mg/dL (74-106); POTASSIUM - SERUM 4.6 mmol/L (3.5-5.1); SODIUM 133 mmol/L (136-145); eGFR NON AFRICAN AMERICAN > 90 mL/min (90-120)
[2018-12-23 06:11] LABS: UREA NITROGEN 17 mg/dL (7-18)
--- NOTE | 2018-12-23 14:01 | NUR ---
0715-RECIEVED AWAKE AND ALERT-REQUESTING BREAKFEST TRAY-UNSURE OF DATE-AWARE IN HOSPITAL-ST ON MONITOR-WITH PAC 0850-AMBULATED IN HALLWAY WITH PHYSICAL THERAPY-ASSISTED TO BED 1030-DR FLORES IN UNIT-SPOKE WITH PT REGARDING FOLLOW -UP PLAN-MADE AWARE OF HEART RATE AND NIBP RECORDINGS-ORDER RECIEVED AND NOTED 1130- TOLD BY PT DISCHARGING TODAY-R LATERAL CHEST DRG CHANGED 1330- AT BEDSIDE AND REVIEWED-1)OFFICE WILL CALL TUESDAY MORNING WITH SCHEDULED CXR FILM AT HOSPITAL 2)-DRG CHANGE TO R CHEST-PROVIDED WITH GAUZE AND TAPE 3)STEPS TO DECREASED OXYGEN TO HOME 2L 4)MONITORING BLOOD PRESSURE AND REGULAR PULSE-PROVIDED WITH DR ROJO NUMBER_ON CALL AND WHEN RECOMMENDED TO CALL -ASSISTED TO WHEELCHAIR AND HOME O2 AT 4L WITH PLANNED DECREASE TO 3L AT HOME THEN 2L TOLERATED-
--- NOTE | 2018-12-25 10:30 | MORECARE ---
CASE MANAGEMENT DISCHARGE SUMMARY PATIENT: EYAD WARD UNIT: [id number] ADM DATE: 12/18/18 AGE: 73 : 45 SEX: M ROOM/BED: [facility] AUTHOR: ALEE,DOC PHYSICIAN: REFERRING PHYSICIAN: PENNY FLORES MD DATE OF SERVICE: 12/25/18 Discharge Plan Patient Name: EYAD WARD Facility: [facility]:[place] : 1945 Planned Disposition: Anticipated Discharge Date: Discharge Date: 12/23/2018 Expected LOS: Initial Reviewer: [email or web address] Initial Review Date: 12/18/2018 Generated: 12/25/18 11:30 am Comments DCP- Discharge Planning Updated by [email or web address]: Georgiana Milner on 12/19/18 12:[address] Patient Name: EYAD WARD Admission Status: Elective Accout number: [id number] Admission Date: 12-18-2018 : 1945 Admission Diagnosis: Attending: PENNY FLORES Current LOS: 1 Anticipated DC Date: Planned Disposition: Primary Insurance: [employer] Discharge Planning Comments: CM met with patient and spouse at bedside after obtaining verbal consent. Patient states he plans on returning home after discharge with his . Patient states he will have family transport him home via private vehicle. Patient does have home 02 with [facility]. Patient denies any discharge needs at this time. Patient may need home health or rehab due to prolonged hospitalization. CM will continue to follow and assist as needed for discharge planning / needs. DCPIA - Discharge Planning Initial Assessment Updated by [email or web address]: Georgiana Milner on 12/19/18 1:36 pm * Is the patient Alert and Oriented? Yes * How many steps to enter\exit or inside your home? * PCP Cong Barr * Pharmacy [facility] [place] * Preadmission Environment Home with Family * ADLs Independent * Equipment Oxygen * Other Equipment 02 with [employer] * List name and contact numbers for known caregivers / representatives who currently or will assist patient after discharge: Dominga Ward - - [phone] * Verbal permission to speak to the caregivers and representatives has been obtained from the patient. Yes * Community resources currently utilized None * Additional services required to return to the preadmission environment? No * Can the patient safely return to the preadmission environment? Yes * Has this patient been hospitalized within the prior 30 days at any hospital? Yes Coverage Notice Reviewer: [email or web address] Danny Suggs Notice Issued Date-Time: 12/23/2018 11:55 Notice Type: IM Discharge Notice Notice Delivered To: Patient Relationship to Patient: Export Administrator Name: Delivery Method: HAND - Hand Delivered Janice Days: Prior Verbal Notification: Recipient Understood Notice: Yes Recipient Signature: Yes Med Rec Note Co-signed by Attending: Coverage Notice Comment: Last DP export: 12/19/18 12:45 p Patient Name: EYAD WARD Page [id number] at 1030 All edits/amendments must be made on the electronic document DICTATION DATE: 12/25/18 1030 SERVICE DEPARTMENT MANAGER: MONSTER 12/25/18 1030 RPT#: [id number] DC DATE:12/23/18 STATUS: DIS IN [facility] [address] [place] [address] END OF REPORT
== END 2018-12-23 14:12 | disposition home or self-care (01) | DRG 200 ==
LOC: D.RAD 11:40 → D.CVICU 13:48
PROVIDERS: General Practice; Internal Medicine Cardiovascular Disease; Internal Medicine Pulmonary Disease; ADMIT Thoracic Surgery (Cardiothoracic Vascular Surgery)
PROC: 0W9930Z Drainage of Right Pleural Cavity with Drainage Device, Percutaneous Approach (ICD-10-PCS; principal; 2018-12-18 17:30)
PROC: 0BJ08ZZ Inspection of Tracheobronchial Tree, Via Natural or Artificial Opening Endoscopic (ICD-10-PCS; 2018-12-20)
PROC: 05HY33Z Insertion of Infusion Device into Upper Vein, Percutaneous Approach (ICD-10-PCS; 2018-12-22)
DX: J93.9 Pneumothorax, unspecified (principal); J98.11 Atelectasis; T79.7XXA Traumatic subcutaneous emphysema, initial encounter; C34.91 Malignant neoplasm of unspecified part of right bronchus or lung; J90 Pleural effusion, not elsewhere classified; D64.9 Anemia, unspecified; R79.89 Other specified abnormal findings of blood chemistry; E87.5 Hyperkalemia; D72.829 Elevated white blood cell count, unspecified; J44.9 Chronic obstructive pulmonary disease, unspecified; I95.9 Hypotension, unspecified; R53.81 Other malaise; I27.20 Pulmonary hypertension, unspecified

== ENCOUNTER → 2018-12-25 11:25 | Outpatient (CLI) | payer OTHER, MEDICARE ==
[2018-12-19 09:32] VITALS: BMI 19.8
[~2018-12-25 11:25] MED LIST changes: +DEXAMETHASONE2 MG PO
== END | disposition home or self-care (01) ==
LOC: D.RAD 11:25
DX: J91.8 Pleural effusion in other conditions classified elsewhere (principal); J18.9 Pneumonia, unspecified organism

== ENCOUNTER → 2018-12-28 13:19 | Outpatient (CLI) | payer OTHER, MEDICARE ==
[2018-12-19 09:32] VITALS: BMI 19.8
== END | disposition home or self-care (01) ==
LOC: D.RAD 13:19
DX: J90 Pleural effusion, not elsewhere classified (principal); J18.9 Pneumonia, unspecified organism

== ENCOUNTER → 2019-01-10 09:47 | Outpatient (CLI) | payer OTHER, MEDICARE ==
[2018-12-19 09:32] VITALS: BMI 19.8
== END | disposition home or self-care (01) ==
LOC: D.RAD 08:00
PROVIDERS: ATTEND Thoracic Surgery (Cardiothoracic Vascular Surgery)
DX: C34.90 Malignant neoplasm of unspecified part of unspecified bronchus or lung (principal); J90 Pleural effusion, not elsewhere classified